=== PATIENT | female | born 1980 | race Caucasian/White ===

== ENCOUNTER 2016-04-02 08:40 | Emergency (ER) | payer BC ==
[2016-04-02 08:54] VITALS: BP 157/87; PULSE 89; RESP 16; TEMP 99.3
--- NOTE | 2016-04-02 09:26 | ED ---
General Adult HPI - General Chief complaint: Extremity Injury, Upper Stated complaint: arm pain Time Seen by Provider: 04/02/16 08:55 Source: patient, RN notes reviewed Mode of arrival: ambulatory Limitations: no limitations - History of Present Illness Initial comments: This is a 35-year-old female who presents to the emergency department with some tenderness to her lateral right pectoralis muscle. Patient states she woke up at 2:00 in morning and it was really hurting bad but as time went on a Better but still is sore when she grabs that portion of her pectoralis muscle. Patient states moving the arm away from the body makes it hurt worse if she rests the arm close to the body the pain almost goes away completely. Patient states she also had a little bit of tingling in her fingers but no actual numbness. Patient denies any injury that she knows of but she does have a toddler that she is constantly picking up. Patient denies any fever or chills. Patient denies any lumps bumps or anything that would be similar to an abscess. Patient denies any redness or warmth or swelling of the arm or of that area. - Related Data Home Medications Medication Instructions Recorded Confirmed No Known Home Medications [No 04/02/16 04/02/16 Known Home Medications] Allergies Allergy/AdvReac Type Severity Reaction Status Date / Time No Known Allergies Allergy Verified 04/02/16 09:07 Review of Systems ROS Statement: Those systems with pertinent positive or pertinent negative responses have been documented in the HPI. ROS Other: All systems not noted in ROS Statement are negative. Past Medical History Past Medical History: No Reported History History of Any Multi-Drug Resistant Organisms: None Reported Past Surgical History: Section, Ear Surgery Past Psychological History: No Psychological Hx Reported Smoking Status: Never smoker Past Alcohol Use History: None Reported Past Drug Use History: None Reported General Exam - General Exam Comments Initial Comments: GENERAL Patient is well-developed and well-nourished. Patient is in mild distress. EYES Patient's pupils are equal and round. Extraocular motion is intact SKIN Unremarkable NEURO The patient is alert and oriented 3 PYSCH Patient has normal interpersonal interactions. MUSCULOSKELETAL The lateral right pectoris muscle is tender to palpation. Limitations: no limitations Course Vital Signs 04/02/16 08:50 Temperature 99.3 F Pulse Rate 89 Respiratory 16 Rate Blood Pressure 157/87 O2 Sat by Pulse 98 Oximetry Disposition Clinical Impression: Muscle strain of chest wall Disposition: HOME SELF-CARE Condition: Good Instructions: Muscle Strain (ED) Additional Instructions: Patient should take Motrin 600 mg by mouth every 6 hours Referrals: Dwayne Fair MD [Primary Care Provider] - 1-2 days Time of Disposition: 09:25
== END 2016-04-02 09:45 | disposition home or self-care (01) ==
LOC: EC 08:40
DX: S29.011A Strain of muscle and tendon of front wall of thorax, initial encounter (principal); X50.3XXA Overexertion from repetitive movements, initial encounter
CPT/HCPCS: 99283

== ENCOUNTER 2018-03-26 12:56 | Emergency (ER) | payer BC ==
[2018-03-26 13:18] VITALS: RESP 18
[2018-03-26] MEDS ORDERED: SODIUM CHLORIDE 0.9% 1,000 ML IV STA (13:26)
[2018-03-26] MEDS ORDERED: BENZONATATE 100 MG CAP PO STA (13:26)
--- NOTE | 2018-03-26 13:47 | ED ---
General Adult HPI - General Chief complaint: Upper Respiratory Infection Stated complaint: COUGH/CHEST CONGESTION Time Seen by Provider: 03/26/18 13:20 Source: patient, RN notes reviewed, old records reviewed Mode of arrival: ambulatory Limitations: no limitations - History of Present Illness Initial comments: 37 old female patient past medical history of tubal ligation presents to ED with 1 month of dry, nonproductive cough. Patient additionally complains of one week of maxillary sinus congestion and drainage. Patient states that she was seen at urgent care approximately 3 weeks ago and prescribed steroids and amoxicillin which she states did not improve symptoms. Patient states that she has some baseline burning substernally with coughing. Patient states that this pain does not radiate, and is not associated with exertion. Patient states that she has some shortness of breath and chest pain with coughing. Patient states that she has had waxing and waning fevers. Patient denies any abdominal pain. Patient denies any other complaints. Systemic: Pt denies fatigue, myalgia, rash. Pt denies weakness, night sweats, weight loss. Neuro: Pt denies headache, visual disturbances, syncope or pre-syncope. HEENT: Pt denies ocular discharge or irritation, otalgia, rhinorrhea, pharyngitis or notable lymphadenopathy. Cardiopulmonary: Pt denies chest pain, SOB, heart palpitations, dyspnea on exertion. Abdominal/GI: Pt denies abdominal pain, n/v/d. : Pt denies dysuria, burning w/ urination, frequency/urgency. Denies new onset urinary or bowel incontinence. MSK: Pt denies myalgia, loss of strength or function in extremities. Neuro: Pt denies new onset weakness, paresthesias. - Related Data Previous Rx's Medication Instructions Recorded Albuterol Inhaler [Ventolin Hfa 1 - 2 puff INHALATION RT-Q6H PRN 03/26/18 Inhaler] #1 inhaler Albuterol Nebulized [Ventolin 2.5 mg INHALATION Q6H #1 nebu 03/26/18 Nebulized] Benzonatate [Tessalon Perles] 100 mg PO TID PRN #20 capsule 03/26/18 predniSONE 50 mg PO DAILY #5 tab 03/26/18 Allergies Allergy/AdvReac Type Severity Reaction Status Date / Time No Known Allergies Allergy Verified 03/26/18 13:18 Review of Systems ROS Statement: Those systems with pertinent positive or pertinent negative responses have been documented in the HPI. ROS Other: All systems not noted in ROS Statement are negative. Past Medical History Past Medical History: No Reported History History of Any Multi-Drug Resistant Organisms: None Reported Past Surgical History: Section, Ear Surgery Past Psychological History: No Psychological Hx Reported Smoking Status: Never smoker Past Alcohol Use History: None Reported Past Drug Use History: None Reported General Exam - General Exam Comments Initial Comments: Constitutional: NAD, AOX3, Pt has pleasant affect. HEENT: NC/AT, trachea midline, neck supple, no lymphadenopathy. Posterior pharynx non erythematous, without exudates. External ears appear normal, without discharge. Mucous membranes moist. Eyes PERRLA, EOM intact. There is no scleral icterus. No pallor noted. Cardiopulmonary: RRR, no murmurs, rubs or gallops, no JVD noted. Lungs CTAB in anterior and posterior gardner. No peripheral edema. Abdominal exam: Abdomen soft and non-distended. Abdomen non-tender to palpation in all 4 quadrants. Bowel sounds active in LLQ. No hepatosplenomegaly. No ecchymosis Neuro: CN II-XII grossly intact. No nuchal rigidity. MSK: No posterior calf tenderness bilaterally, homans sign negative bilaterally. Posterior tibialis and radial pulse +2 bilaterally. Sensation intact in upper and lower extremities. Full active ROM in upper and lower extremities, 5/5 stregnth. Limitations: no limitations Course Vital Signs 03/26/18 03/26/18 13:15 15:54 Temperature 98.8 F 97.7 F Pulse Rate 104 H 95 Respiratory 18 18 Rate Blood Pressure 139/95 148/90 O2 Sat by Pulse 97 98 Oximetry Medical Decision Making - Medical Decision Making 37 old female patient past medical history of tubal ligation presents to ED with 1 month of dry, nonproductive cough. Patient additionally complains of one week of maxillary sinus congestion and drainage. and has some baseline burning substernally with coughing. Patient states that this pain does not radiate, and is not associated with exertion. Patient states that she has some shortness of breath and chest pain with coughing. Patient states that she has had waxing and waning fevers. Patient denies any abdominal pain. Patient denies any other complaints. Patient vital signs initially displayed mild tachycardia 104 bpm, otherwise stable. Physical exam did not display acute pathology. CBC, CMP noncompressive. Troponin negative. D-dimer mildly elevated. Chest x-ray displayed no acute cardiopulmonary process. CT chest angiography ruled out pulmonary embolism.And displayed findings consistent with bronchitis. EKG was not concerning for acute ischemia. Pt to be discharged with treatment for bronchitis. Patient prescribed prednisone for 5 days, Tessalon Perles, albuterol rescue inhaler, albuterol nebulizer solution. Patient does have nebulizers at home. Patient to follow with primary care provider in 1-2 days. Patient to return to ED presents to the develop or condition worsens anyway. Case discussed in depth with Dr. Cardona. - Lab Data Result diagrams: 03/26/18 13:40 03/26/18 13:40 Lab Results 03/26/18 03/26/18 03/26/18 Range/Units 13:40 13:40 13:40 WBC 7.4 (3.8-10.6) k/uL RBC 5.21 (3.80-5.40) m/uL Hgb 12.1 (11.4-16.0) gm/dL Hct 38.1 (34.0-46.0) % MCV 73.1 L (80.0-100.0) fL MCH 23.1 L (25.0-35.0) pg MCHC 31.7 (31.0-37.0) g/dL RDW 15.9 H (11.5-15.5) % Plt Count 280 (150-450) k/uL Neutrophils % 68 % Lymphocytes % 21 % Monocytes % 5 % Eosinophils % 4 % Basophils % 1 % Neutrophils # 5.1 (1.3-7.7) k/uL Lymphocytes # 1.5 (1.0-4.8) k/uL Monocytes # 0.4 (0-1.0) k/uL Eosinophils # 0.3 (0-0.7) k/uL Basophils # 0.0 (0-0.2) k/uL Hypochromasia Slight Microcytosis Moderate D-Dimer 0.64 H (<0.60) mg/L FEU Sodium 142 (137-145) mmol/L Potassium 3.8 (3.5-5.1) mmol/L Chloride 108 H (98-107) mmol/L Carbon Dioxide 24 (22-30) mmol/L Anion Gap 10 mmol/L BUN 8 (7-17) mg/dL Creatinine 0.74 (0.52-1.04) mg/dL Est GFR (CKD-EPI)AfAm >90 (>60 ml/min/1.73 sqM) Est GFR (CKD-EPI)NonAf >90 (>60 ml/min/1.73 sqM) Glucose 108 H (74-99) mg/dL Calcium 9.3 (8.4-10.2) mg/dL Total Bilirubin 0.5 (0.2-1.3) mg/dL AST 57 H (14-36) U/L ALT 78 H (9-52) U/L Alkaline Phosphatase 94 (38-126) U/L Troponin I (0.000-0.034) ng/mL Total Protein 7.8 (6.3-8.2) g/dL Albumin 4.5 (3.5-5.0) g/dL 03/26/18 Range/Units 13:40 WBC (3.8-10.6) k/uL RBC (3.80-5.40) m/uL Hgb (11.4-16.0) gm/dL Hct (34.0-46.0) % MCV (80.0-100.0) fL MCH (25.0-35.0) pg MCHC (31.0-37.0) g/dL RDW (11.5-15.5) % Plt Count (150-450) k/uL Neutrophils % % Lymphocytes % % Monocytes % % Eosinophils % % Basophils % % Neutrophils # (1.3-7.7) k/uL Lymphocytes # (1.0-4.8) k/uL Monocytes # (0-1.0) k/uL Eosinophils # (0-0.7) k/uL Basophils # (0-0.2) k/uL Hypochromasia Microcytosis D-Dimer (<0.60) mg/L FEU Sodium (137-145) mmol/L Potassium (3.5-5.1) mmol/L Chloride (98-107) mmol/L Carbon Dioxide (22-30) mmol/L Anion Gap mmol/L BUN (7-17) mg/dL Creatinine (0.52-1.04) mg/dL Est GFR (CKD-EPI)AfAm (>60 ml/min/1.73 sqM) Est GFR (CKD-EPI)NonAf (>60 ml/min/1.73 sqM) Glucose (74-99) mg/dL Calcium (8.4-10.2) mg/dL Total Bilirubin (0.2-1.3) mg/dL AST (14-36) U/L ALT (9-52) U/L Alkaline Phosphatase (38-126) U/L Troponin I <0.012 (0.000-0.034) ng/mL Total Protein (6.3-8.2) g/dL Albumin (3.5-5.0) g/dL - EKG Data -: EKG Interpreted by Me (and dr cardona ) EKG Comments: Ventricular rate 90,. And for 114, QRS 86, QT/QTC 348/4.5. Normal sinus rhythm with sinus arrhythmia. ST abnormality, possible digitalis effect. Disposition Clinical Impression: Bronchitis Disposition: HOME SELF-CARE Condition: Stable Instructions (If sedation given, give patient instructions): Acute Bronchitis ( ED) Additional Instructions: Patient to adhere to previously discussed treatment plan and will take medication(s) as directed. Patient to follow up with PCP in 1-2 days. Patient to return to ED if symptoms do not improve. Prescriptions: Albuterol Inhaler [Ventolin Hfa Inhaler] 1 - 2 puff INHALATION RT-Q6H PRN #1 inhaler PRN Reason: as needed Albuterol Nebulized [Ventolin Nebulized] 2.5 mg INHALATION Q6H #1 nebu Benzonatate [Tessalon Perles] 100 mg PO TID PRN #20 capsule PRN Reason: Cough predniSONE 50 mg PO DAILY #5 tab Is patient prescribed a controlled substance at d/c from ED?: No Referrals: Dwayne Fair MD [Primary Care Provider] - 1-2 days
[2018-03-26 13:53] LABS: Basophils % (A) 1 %; Eosinophils # (A) 0.3 k/uL (0-0.7); Eosinophils % (A) 4 %; HCT 38.1 % (34.0-46.0); HGB 12.1 gm/dL (11.4-16.0); Hypochromasia Slight; Lymphocytes # (A) 1.5 k/uL (1.0-4.8); Lymphocytes % (A) 21 %; MCH 23.1 pg (25.0-35.0); MCHC 31.7 g/dL (31.0-37.0); MCV 73.1 fL (80.0-100.0); Mean Platelet Volume 6.6; Microcytosis Moderate; Monocytes # (A) 0.4 k/uL (0-1.0); Monocytes % (A) 5 %; Neutrophils # (A) 5.1 k/uL (1.3-7.7); Neutrophils % (A) 68 %; Platelet Count 280 k/uL (150-450); RBC 5.21 m/uL (3.80-5.40); RDW 15.9 % (11.5-15.5); WBC 7.4 k/uL (3.8-10.6)
[2018-03-26 14:07] LABS: ALT 78 U/L (9-52); AST 57 U/L (14-36); Albumin 4.5 g/dL (3.5-5.0); Alkaline Phosphatase 94 U/L (38-126); Anion Gap 10 mmol/L; Blood Urea Nitrogen 8 mg/dL (7-17); Calcium 9.3 mg/dL (8.4-10.2); Carbon Dioxide 24 mmol/L (22-30); Chloride 108 mmol/L (98-107); Glucose 108 mg/dL (74-99); Potassium 3.8 mmol/L (3.5-5.1); Sodium 142 mmol/L (137-145); Total Bilirubin 0.5 mg/dL (0.2-1.3); Total Protein 7.8 g/dL (6.3-8.2)
--- NOTE | 2018-03-26 14:11 | XR ---
EXAMINATION TYPE: XR chest 2V DATE OF EXAM: 03/26/2018 COMPARISON: NONE HISTORY: Cough and chest pain TECHNIQUE: Frontal and lateral views of the chest are obtained. FINDINGS: There is no focal air space opacity, pleural effusion, or pneumothorax seen. The cardiac silhouette size is within normal limits. The osseous structures are intact. IMPRESSION: No acute cardiopulmonary process.
--- NOTE | 2018-03-26 15:05 | CT ---
EXAMINATION TYPE: CT chest angio for PE DATE OF EXAM: 03/26/2018 COMPARISON: NONE HISTORY: Cough and chest congestion. CT DLP: 369.9 mGycm. Automated Exposure Control for Dose Reduction was Utilized. CONTRAST: CTA scan of the thorax is performed with IV Contrast, patient injected with 60ml mL of Isovue 370, pu lmonary embolism protocol. MIP Images are created on CT scanner and reviewed. FINDINGS: LUNGS: The lungs are grossly clear, there is no concerning parenchymal mass or nodule identified. T here are very few scattered subtle reticular nodular opacities throughout the lungs and diffuse mild peribronchial cuffing There is no pleural effusion or pneumothorax seen. The tracheobronchial tree i s patent. MEDIASTINUM: There is satisfactory enhancement of the pulmonary artery and its branches, there is no CT evidence for pulmonary embolism. There are mildly enlarged mediastinal lymph nodes measuring 1.1 cm in the right hilum and 9 mm in the prevascular space as well as 1.2 cm in the aorticopulmonary win simone. No cardiomegaly or pericardial effusion is seen. OTHER: Hepatic parenchyma is diffusely hypoattenuated in comparison to that of the spleen, most commo nly seen in hepatic steatosis. This finding limits evaluation for hepatic masses. No gross evidence o f hepatic mass is seen. No intrahepatic biliary ductal dilatation. Spleen is upper limits of normal s ize measuring 13.5 cm in longitudinal dimension IMPRESSION: 1. No evidence of pulmonary embolism. 2. Subtle scattered reticular nodular interstitial opacities and very mild diffuse peribronchial cuff ing suggest bronchitis. Mildly enlarged mediastinal adenopathy is likely reactive. 3. Hepatic steatosis and prominent size of the spleen approaching criteria for splenomegaly.
[2018-03-26 15:56] VITALS: BP 148/90; PULSE 95; TEMP 97.7
== END 2018-03-26 16:26 | disposition home or self-care (01) ==
LOC: EC 12:56
DX: J40 Bronchitis, not specified as acute or chronic (principal); R79.1 Abnormal coagulation profile
CPT/HCPCS: 36415; 93005; 85379; 80053; 84484; 85025; 71046; 71275; 99284; 96360; Q9967

== ENCOUNTER 2018-04-01 17:56 | Emergency (ER) | payer BC ==
[2018-04-01 18:15] VITALS: TEMP 98
--- NOTE | 2018-04-01 19:05 | ED ---
General Adult HPI - General Chief complaint: Headache Stated complaint: headache, double vision Source: patient, RN notes reviewed Mode of arrival: ambulatory Limitations: no limitations - History of Present Illness Initial comments: Patient is a 37-year-old female with history of migraine who presents the emergency department with her mother with complaint of headache for 3 days. She reports that she recently had bronchitis and other upper respiratory symptoms including runny nose and nasal congestion. She states that she recently finished the Z-Pack. She states that the pain is primarily frontal. She took 400 mg of ibuprofen at noon. She also complains of slight blurred vision (no double vision). She reports some nausea earlier, but none now. Patient denies any recent fever, chills, shortness of breath, chest pain, back pain, abdominal pain, vomiting, numbness or tingling, or any other complaints. - Related Data Previous Rx's Medication Instructions Recorded Albuterol Inhaler [Ventolin Hfa 1 - 2 puff INHALATION RT-Q6H PRN 03/26/18 Inhaler] #1 inhaler Albuterol Nebulized [Ventolin 2.5 mg INHALATION Q6H #1 nebu 03/26/18 Nebulized] Benzonatate [Tessalon Perles] 100 mg PO TID PRN #20 capsule 03/26/18 predniSONE 50 mg PO DAILY #5 tab 03/26/18 Amoxicillin/Potassium Clav 1 tab PO Q12HR 14 Days 04/01/18 [Augmentin 875-125 Tablet] Allergies Allergy/AdvReac Type Severity Reaction Status Date / Time No Known Allergies Allergy Verified 04/01/18 18:15 Review of Systems ROS Statement: Those systems with pertinent positive or pertinent negative responses have been documented in the HPI. ROS Other: All systems not noted in ROS Statement are negative. Past Medical History Past Medical History: No Reported History Additional Past Medical History / Comment(s): Unkown heart issues. History of Any Multi-Drug Resistant Organisms: None Reported Past Surgical History: Section, Ear Surgery Past Psychological History: No Psychological Hx Reported Smoking Status: Never smoker Past Alcohol Use History: None Reported Past Drug Use History: None Reported General Exam Limitations: no limitations General appearance: alert, in no apparent distress Head exam: Present: atraumatic, normocephalic, other (Tenderness over the frontal and maxillary sinuses.) Eye exam: Present: normal appearance, PERRL, EOMI ENT exam: Present: normal oropharynx, other (Left TM bulging. Right TM normal.) Neck exam: Present: full ROM. Absent: tenderness Respiratory exam: Present: normal lung sounds bilaterally. Absent: wheezes, rales, rhonchi Cardiovascular Exam: Present: regular rate, normal rhythm Neurological exam: Present: alert, oriented X3, CN II-XII intact, normal gait Course Vital Signs 04/01/18 04/01/18 18:12 20:47 Temperature 98 F Pulse Rate 107 H 74 Respiratory 20 18 Rate Blood Pressure 132/95 141/80 O2 Sat by Pulse 99 96 Oximetry Medical Decision Making - Medical Decision Making Visual acuity 20/20 both, 20/20 left, 20/25 right (per nurse). CT of the brain reveals pansinusitis, but is otherwise negative. Patient given Toradol 30 mg IM. Will prescribe Augmentin. Patient instructed to take a decongestant (ask for it behind the pharmacy counter). Case discussed in detail with attending physician Dr. Cardona. Disposition Clinical Impression: Sinusitis, Otitis media Disposition: HOME SELF-CARE Condition: Good Instructions (If sedation given, give patient instructions): Sinusitis (ED), Ear Infection (ED) Additional Instructions: Follow-up with your PCP in 1-2 days. Please take antibiotic as prescribed. Take decongestant as needed (ask for it behind the counter at the pharmacy). Return to the emergency department if your symptoms worsen or other concerns. Prescriptions: Amoxicillin/Potassium Clav [Augmentin 875-125 Tablet] 1 tab PO Q12HR 14 Days Is patient prescribed a controlled substance at d/c from ED?: No Referrals: Dwayne Fair MD [Primary Care Provider] - 1-2 days
--- NOTE | 2018-04-01 19:56 | CT ---
EXAMINATION TYPE: CT brain wo con DATE OF EXAM: 04/01/2018 COMPARISON: None HISTORY: headache, double vision CT DLP: 1076.4 mGycm. Automated Exposure Control for Dose Reduction was Utilized. TECHNIQUE: CT scan of the head is performed without contrast. FINDINGS: There is mucosal thickening in the maxillary sinuses with fluid levels. There is mucosal th ickening in the frontal sphenoid ethmoid sinuses with multiple fluid levels. Ventricles have normal size. There is no mass effect nor midline shift. There is no sign of intracran ial hemorrhage. The calvarium is intact. IMPRESSION: Negative CT scan of the brain. Pansinusitis.
[2018-04-01] MEDS ORDERED: KETOROLAC 60 MG/2 ML VIAL IM STA (20:20)
[2018-04-01 20:48] VITALS: BP 141/80; PULSE 74; RESP 18
== END 2018-04-01 20:55 | disposition home or self-care (01) ==
LOC: EC 17:56
DX: H66.92 Otitis media, unspecified, left ear (principal); J32.4 Chronic pansinusitis; H53.8 Other visual disturbances
CPT/HCPCS: 70450; 99284; 96372; J1885

== ENCOUNTER 2019-09-21 06:26 | Day surgery (SDC) | payer BC, OTHER ==
[2019-09-14 14:19] VITALS: BMI 30.6
[~2019-09-21 06:26] MED LIST: DEXAMETHASONE SOD PHOSPHATE 10 MG/ML 1 ML VIAL IV ONE; HYDROmorphone 0.5 MG/0.5 ML SYRINGE IVP PRN; LACTATED RINGERS 1,000 ML IV SCH; LIDOCAINE 1% (10MG/ML) FOR IV START INTRADERMA PRN; ONDANSETRON 4 MG/2 ML VIAL IVP ONE; Pre Op ABX Message 1 EACH MISC MISCELLANE ONE; SCOPOLAMINE 1.5MG/72HR PATCH TRANSDERM ONE
[2019-09-21] MEDS ORDERED: ONDANSETRON 4 MG/2 ML VIAL ONE (06:49)
[2019-09-21] MEDS ORDERED: MIDAZOLAM 2 MG/2 ML VIAL ONE (07:25)
[2019-09-21] MEDS ORDERED: PROPOFOL 10 MG/ML 20 ML VIAL IV ONE (07:25)
[2019-09-21] MEDS ORDERED: KETOROLAC 30 MG/ML 1 ML VIAL ONE ×2 (07:25→08:47)
[2019-09-21] MEDS ORDERED: fentaNYL (PF) 50 MCG/ML 2 ML AMP ONE (07:25)
[2019-09-21] MEDS ORDERED: LIDOCAINE 1% INJ 10MG/ML (20 ML MDV) ONE (07:25)
--- NOTE | 2019-09-21 08:09 | P.OP ---
Date of Procedure: 09/21/19 Preoperative Diagnosis: Menorrhagia Postoperative Diagnosis: Same Procedure(s) Performed: #1: Hysteroscopy. #2: Dilation and curettage. #3: NovaSure endometrial ablation Anesthesia: other (LMA) Surgeon: Luke Alas Estimated Blood Loss (ml): 10 Urine output (ml): 25 Pathology: other (Uterine curettings) Condition: stable Disposition: PACU Indications for Procedure: Please see dictated H&P for intimate details of this patient's admission. Brief summary this pleasant 38-year-old multiparous patient who's had persistent menorrhagia and ultrasound showing possible endometrial polyp. Patient presents for hysteroscopy D&C and also requesting NovaSure endometrial ablation. Patient understands this surgery and risks and risks of infection, bleeding, possible uterine perforation, and/or thermal injury. All the patient's questions are answered and a written consent is obtained. Operative Findings: This patient normal. Endometrial cavity with perhaps a small polyp but no large polyp was noted. Description of Procedure: This patient is taken the operating room she is laid in the supine position. She subsequently undergoes general anesthesia without incident. With an adequate level of anesthesia was placed in dorsal lithotomy position. She has a vaginal perineal prep and drape. Examination under anesthesia shows a mid position uterus. I first drain the bladder for 25 mL of clear urine. Weighted speculum placed posteriorly and the anterior lip of the cervix was grabbed with an Allis clamp. The cervix is then gently dilated. It is sounded to 8.5 cm. Hysteroscope was then introduced into the uterine cavity and using saline solution hysteroscopy is performed. I do not see any evidence of any large polyp however there is multiple small polyps that appear benign. Endometrial cavity length was measured at 6 cm. With this done the hysteroscope was removed. Cervix is dilated more to allow the polyp forceps into the uterine cavity. I then use a suction curette and gently but thoroughly do 4 quadrant curettage. This tissue sent off to pathology. This done the NovaSure device is then opened appears to be intact. It is set at a length of 6.0 cm and seated into the uterine cavity was a width of 4.6 cm. It passes the cavity integrity test and then is enabled at [address] setting for 1 minute 19 seconds. This done the NovaSure device is then removed again appears to be intact. Hysteroscopy is performed again and the uterine cavity appears to be ablated up to the endocervix. Excellent results are noted. This completed the procedure is ended. The Allis clamp and weighted speculum were removed. All counts are correct 3. There are no complications. Patient is awakened from anesthesia and taken to the recovery room in satisfactory condition.
[2019-09-21 08:12] VITALS: TEMP 97.2
[2019-09-21] MEDS ORDERED: KETOROLAC 30 MG/ML 1 ML VIAL IVP ONE (08:49)
[2019-09-21 09:06] VITALS: RESP 16
[2019-09-21 10:03] VITALS: BP 104/60; PULSE 70
== END 2019-09-21 10:20 | disposition home or self-care (01) ==
LOC: OR 06:26
PROVIDERS: ATTEND Obstetrics & Gynecology
DX: N92.0 Excessive and frequent menstruation with regular cycle (principal); N84.0 Polyp of corpus uteri; I10 Essential (primary) hypertension; G43.909 Migraine, unspecified, not intractable, without status migrainosus; Z79.899 Other long term (current) drug therapy; Z98.51 Tubal ligation status; Z98.890 Other specified postprocedural states
CPT/HCPCS: 81025; 88305; 58563; J2250; J1100; J2405; J2001; J3010; J1885; J2704

== ENCOUNTER → 2019-09-28 | Outpatient (CLI) | payer BC, OTHER ==
--- NOTE | 2019-09-20 13:01 | P.HPOB ---
History of Present Illness H&P Date: 09/20/19 Chief Complaint: Menrrhagia This patient is a pleasant 38 yr female who presented for a yearly examination and complaints of menorrhagia. Evaluation demonstrated was appears to be a 1.3 cm endometrial polyp. I discussed doing a D&C for removal and she has requested an endometrial ablation at the same time. Review of Systems Menstruation: Reports period heavy Past Medical History Past Medical History: Hypertension Additional Past Medical History / Comment(s): Unkown heart issues. History of Any Multi-Drug Resistant Organisms: None Reported Past Surgical History: Section, Ear Surgery, Tubal Ligation Past Anesthesia/Blood Transfusion Reactions: No Reported Reaction Past Psychological History: No Psychological Hx Reported Smoking Status: Former smoker Past Alcohol Use History: None Reported Past Drug Use History: None Reported Medications and Allergies Home Medications Medication Instructions Recorded Confirmed Type Hydrochlorothiazide 12.5 mg PO QAM 09/14/19 09/14/19 History [hydroCHLOROthiazide] Losartan [Cozaar] 50 mg PO QAM 09/14/19 09/14/19 History Phentermine HCl [Adipex-P] 37.5 mg PO DAILY 09/14/19 09/14/19 History Topiramate [Topamax] 25 mg PO BID 09/14/19 09/14/19 History Allergies Allergy/AdvReac Type Severity Reaction Status Date / Time No Known Allergies Allergy Verified 09/14/19 14:05 Exam - OBG Physical Exam Abdomen: bowel sounds normal Vulva: both: normal Vagina: normal moisture, no discharge Cervix: no lesion, no discharge Uterus: normal size, normal contour Results Ultrasound on 08/21 demonstrated 1.3 cm endometrial polyp. Assessment and Plan Assessment: This is a pleasant 38 yr old female with menorrhagia and who appears to be an endometrial polyp. Plan is hysteroscopy, D&C, and Novasure endometrial ablation. Amy and I have discussed this surgery and risks: infection, bleeding, possible uterine perforation and/or thermal injury. All of the patients questions have been answered and a written consent obtained (1) Menorrhagia Status: Acute Code(s): N92.0 - EXCESSIVE AND FREQUENT MENSTRUATION WITH REGULAR CYCLE SNOMED Code(s): 866968322 (2) Endometrial polyp Status: Acute Code(s): N84.0 - POLYP OF CORPUS UTERI SNOMED Code(s): 11382291
--- NOTE | 2019-09-28 12:06 | MM ---
Reason for exam: screening (asymptomatic). Baseline mammogram. History: Family history of breast cancer in maternal grandmother at age 40, breast cancer in paternal grandmother at age 40, breast cancer in paternal aunt at age 30, breast cancer in maternal aunt at age 54, breast cancer in maternal aunt at age 40, and breast cancer in maternal aunt at age 50. Took hormonal contraceptives for 10 years beginning at age 16. Physical Findings: Nurse did not find any significant physical abnormalities on exam. MG 3D Screening Mammo W/Cad Bilateral CC and MLO view(s) were taken. The breast tissue is heterogeneously dense. This may lower the sensitivity of mammography. No significant finding. These results were verbally communicated with the patient and result sheet given to the patient on 09/28/19. ASSESSMENT: Benign, BI-RAD 2 RECOMMENDATION: Routine screening mammogram of both breasts in 1 year.
== END | disposition home or self-care (01) ==
LOC: RADMAMWWP 10:00
PROVIDERS: ATTEND Family Medicine
DX: Z12.31 Encounter for screening mammogram for malignant neoplasm of breast (principal)
CPT/HCPCS: 77063; 77067

== ENCOUNTER → 2020-02-27 | Outpatient (CLI) | payer BC, OTHER ==
[2020-02-27 15:31] LABS: Basophils % (A) 1 %; Eosinophils # (A) 0.2 k/uL (0-0.7); Eosinophils % (A) 3 %; HCT 41.1 % (34.0-46.0); Lymphocytes # (A) 1.6 k/uL (1.0-4.8); Lymphocytes % (A) 26 %; MCH 30.9 pg (25.0-35.0); MCV 90.9 fL (80.0-100.0); Mean Platelet Volume 7.9; Monocytes # (A) 0.3 k/uL (0-1.0); Monocytes % (A) 5 %; Neutrophils # (A) 4.1 k/uL (1.3-7.7); Neutrophils % (A) 64 %; Platelet Count 193 k/uL (150-450); RBC 4.52 m/uL (3.80-5.40); RDW 12.6 % (11.5-15.5); WBC 6.4 k/uL (3.8-10.6)
[2020-02-27 15:36] LABS: African American GFR (CKD) >90 (>60 ml/min/1.73 sqM); Anion Gap 7 mmol/L; Blood Urea Nitrogen 12 mg/dL (7-17); Calcium 9.4 mg/dL (8.4-10.2); Carbon Dioxide 29 mmol/L (22-30); Chloride 105 mmol/L (98-107); Glucose 99 mg/dL (74-99); Non-African American GFR(CKD) 84 (>60 ml/min/1.73 sqM); Potassium 3.1 mmol/L (3.5-5.1); Sodium 141 mmol/L (137-145)
== END | disposition home or self-care (01) ==
LOC: LABPAT 14:58
PROVIDERS: ATTEND Obstetrics & Gynecology
DX: Z01.818 Encounter for other preprocedural examination (principal)
CPT/HCPCS: 36415; 80048; 85025

== ENCOUNTER 2020-03-07 06:01 | Inpatient (IN) | payer BC, OTHER ==
[2020-02-29 08:42] VITALS: BMI 28.5
--- NOTE | 2020-03-06 12:44 | P.HPOB ---
History of Present Illness H&P Date: 03/06/20 Chief Complaint: Menorrhagia, dysmenorrhea with failed ablation This patient is a pleasant 39 yr female who had an endometrial ablation in September for menorrhagia and iron deficient anemia. Patient returned stating that the ablation unfortunately was ineffective and continues to have menorrhagia and dysmenorrhea and desires definitive surgical treatment. Due to 3 previous C/S, plan is abdominal hysterectomy. Review of Systems Eyes: left bulging eye Genitourinary: Reports as per HPI, Reports abnormal vaginal bleeding, Reports dysmenorrhea, Reports menorrhagia Past Medical History Past Medical History: Asthma, Hypertension Additional Past Medical History / Comment(s): wore heart monitor in spring for possible murmur, no issues found, migraines History of Any Multi-Drug Resistant Organisms: None Reported Past Surgical History: Section, Ear Surgery, Tubal Ligation, Uterine Ablation Additional Past Surgical History / Comment(s): Section X3., D & C Past Anesthesia/Blood Transfusion Reactions: No Reported Reaction Additional Past Anesthesia/Blood Transfusion Reaction / Comment(s): "[place] last entirely". Mom and brother slow to wake up. Past Psychological History: No Psychological Hx Reported Smoking Status: Former smoker Past Alcohol Use History: None Reported Past Drug Use History: None Reported - Past Family History Brother(s) Family Medical History: Cancer Additional Family Medical History / Comment(s): Tongue cancer, throat cancer, non hodgkins lymphoma. Medications and Allergies Home Medications Medication Instructions Recorded Confirmed Type Hydrochlorothiazide 12.5 mg PO QAM 09/14/19 02/28/20 History [hydroCHLOROthiazide] Losartan [Cozaar] 50 mg PO QAM 09/14/19 02/28/20 History Phentermine HCl [Adipex-P] 37.5 mg PO DAILY 09/14/19 02/28/20 History Topiramate [Topamax] 25 mg PO BID 09/14/19 02/28/20 History Albuterol Sulfate [Proair Hfa] 1 - 2 puff INHALATION Q6HR PRN 02/29/20 02/29/20 History Beclomethasone Dipropionate [Qvar 1 puff INHALATION BID 02/29/20 02/29/20 History 40 mcg Redihaler] Allergies Allergy/AdvReac Type Severity Reaction Status Date / Time No Known Allergies Allergy Verified 02/28/20 15:33 Exam - OBG Physical Exam Abdomen: bowel sounds normal, no diffuse tenderness, no bruit present, no guarding noted, no hepatomegaly, no splenomegaly, no mass Vulva: both: normal Vagina: normal moisture, no discharge Cervix: no lesion, no discharge Uterus: normal size Results Previous ultrasound and endometrial sampling was negative. Assessment and Plan Assessment: This is a pleasant 39 yr female with long standing menorrhagia, dysmenorrhea, s/p ablation who requests definitive surgical treatment. Due to p revious C/S, plan is total abdominal hysterectomy, bilateral salpingectomy, with ovarian conservation (unless necessary). Amy and I have discussed this surgery in detail, including risks: infection, bleeding, possible injury to bowel/bladder/ureters requiring more surgery and/or prolonged catheterization. She understands she is at increased risk of urinary injury due to 3 previous C/S. We also discussed the risk of DVT/PE. All of her questions were answered and a written consent obtained. 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
[2020-03-07] MEDS ORDERED: ONDANSETRON 4 MG/2 ML VIAL IVP ONE (06:10)
[2020-03-07] MEDS ORDERED: DEXAMETHASONE SOD PHOSPHATE 4 MG/ML 1 ML VIAL IV ONE (06:10)
[2020-03-07] MEDS ORDERED: LACTATED RINGERS 1,000 ML IV SCH (06:10)
[2020-03-07] MEDS ORDERED: LIDOCAINE 1% (10MG/ML) FOR IV START INTRADERMA PRN (06:10)
[2020-03-07] MEDS ORDERED: MIDAZOLAM 2 MG/2 ML VIAL IVP ONE (07:00)
[2020-03-07] MEDS ORDERED: HYDROmorphone 0.5 MG/0.5 ML SYRINGE IVP PRN (07:00)
[2020-03-07] MEDS ORDERED: SCOPOLAMINE 1.5MG/72HR PATCH TRANSDERM ONE (07:00)
[2020-03-07] MEDS ORDERED: GLYCOPYRROLATE 0.2 MG/ML 2 ML VIAL ONE (07:19)
[2020-03-07] MEDS ORDERED: ROCURONIUM 10 MG/ML (10 ML VIAL) IV ONE (07:19)
[2020-03-07] MEDS ORDERED: SUCCINYLCHOLINE CHLORIDE 100 MG/5 ML SYR IV ONE (07:19)
[2020-03-07] MEDS ORDERED: PROPOFOL 10 MG/ML 20 ML VIAL IV ONE (07:19)
[2020-03-07] MEDS ORDERED: MORPHINE SULFATE (PF) 0.3 MG/0.3 ML SYR ONE (07:19)
[2020-03-07] MEDS ORDERED: PHENYLEPHRINE 10 MG/ML VIAL ONE (07:19)
[2020-03-07] MEDS ORDERED: fentaNYL (PF) 50 MCG/ML 2 ML AMP ONE (07:19)
[2020-03-07] MEDS ORDERED: LIDOCAINE 1% INJ 10MG/ML (20 ML MDV) ONE (07:19)
[2020-03-07] MEDS ORDERED: KETOROLAC 15 MG/ML 1 ML VIAL ONE (07:19)
[2020-03-07] MEDS ORDERED: MIDAZOLAM 2 MG/2 ML VIAL ONE (07:19)
[2020-03-07] MEDS ORDERED: NEOSTIGMINE 1 MG/ML 10 ML VIAL ONE (07:19)
[2020-03-07] MEDS ORDERED: LACTATED RINGERS 1,000 ML IV ONE (08:24)
[2020-03-07 08:40] VITALS: RESP 16
--- NOTE | 2020-03-07 08:46 | P.OP ---
Date of Procedure: 03/07/20 Preoperative Diagnosis: #1: Dysfunctional uterine bleeding/menorrhagia. #2: Dysmenorrhea. #3: Failed endometrial ablation Postoperative Diagnosis: Same Procedure(s) Performed: Total abdominal hysterectomy and bilateral salpingectomy Anesthesia: WENDI Surgeon: Luke Alas Automatic Chief #1: Reyna Castillo Estimated Blood Loss (ml): 20 Pathology: other (Uterus with attached cervix and bilateral fallopian tubes) Condition: stable Disposition: PACU Indications for Procedure: Please see dictated H&P for intimate details of this patient's admission. Brief summary this pleasant 39-year-old multiparous patient who's had long-standing dysfunctional bleeding and dysmenorrhea and failed endometrial ablation requesting definitive surgical therapy. Patient I discussed the surgery and risks and risks of infection, bleeding, possible injury to bowel, bladder, vessels, and/or other organs. Patient stands risk of DVT and pulmonary embolism. All the patient's questions are answered written consent is obtained. Operative Findings: This is a patient had a normal-appearing uterus and bilateral fallopian tubes and ovaries. Evidence of previous tubal ligation Description of Procedure: This patient is taken to the operating room where she is laid in the supine position. She subsequent undergoes general endotracheal anesthesia without incident. With an adequate level of anesthesia she has a vaginal perineal abdominal prep and drape. Scalpels and taken the previous Pfannenstiel incision is incised. A second scalpel is taken down the fascia the fascia scored with scalpel. Fascial incision extended bilaterally using Lau scissors. Fascia is dissected off the rectus muscles sharply. Peritoneum was identified and entered sharply. Peritoneal incision extended superior and inferior without difficulty. Inspection the pelvis this time shows a mobile uterus with normal tubes and ovaries. Bowel and upper abdomen grossly appears normal. Robe retractor is then placed. The bowels packed up out of the pelvis with a wet laparotomy sponge. Using 2 curved Cassie's a grabbed the cornea of the uterus. The right fallopian tube is grasped with a Tristanian and a Antonio clamp placed across the pedicle. This is transected and suture ligated with 0 Vicryl suture. Excellent hemostasis is noted. Similar technique is done on the left side with similar results. With this done 2 curved Heaneys are placed across the cornea of the uterus. Serial transection and suture ligation is done with 0 Vicryl suture in the usual fashion to the level of the bladder. Bladder peritoneum was then sharply dissected off the lower uterine segment without difficulty. Serial clamps of the uterosacral cardinal ligaments were then done with a Antonio clamps. At the apex of the vagina the uterus with attached cervix is then excised. The vaginal cuff was then closed in 0 Vicryl running locked fashion. Excellent hemostasis is noted. Copious irrigation is done at this time and small bleeders are cauterized. Excellent hemostasis is noted. This completed the pack is removed and the Robe retractors removed. All counts are correct 3. Peritoneum was identified and closed using 0 Vicryl running fashion. Rectus muscles were approximate 0 Vicryl interrupted fashion. Fascial incision closed using 0 PDS. Fascial incision is intact and hemostatic. Subcutaneous tissues and closed using a 3-0 Vicryl. Skin is and closed using gloria. Sterile dressing is then applied. All counts are correct 3. There are no complications. Patient is awakened from anesthesia and taken to the recovery room in satisfactory condition
[2020-03-07] MEDS ORDERED: IBUPROFEN 600 MG TAB PO PRN (09:31)
[2020-03-07] MEDS ORDERED: diphenhydrAMINE 50 MG/ML 1 ML VIAL IVP PRN (09:31)
[2020-03-07] MEDS ORDERED: SIMETHICONE 80 MG CHEWABLE PO PRN (09:31)
[2020-03-07] MEDS ORDERED: ONDANSETRON 4 MG/2 ML VIAL IVP PRN (09:31)
[2020-03-07] MEDS ORDERED: Acetaminophen-Codeine 300-30mg TAB PO PRN (09:31)
[2020-03-07 10:10] LABS: Basophils % (A) 0 %; Eosinophils % (A) 0 %; HCT 39.5 % (34.0-46.0); HGB 13.9 gm/dL (11.4-16.0); Lymphocytes # (A) 1.1 k/uL (1.0-4.8); Lymphocytes % (A) 8 %; MCH 32.1 pg (25.0-35.0); MCHC 35.2 g/dL (31.0-37.0); MCV 91.1 fL (80.0-100.0); Monocytes # (A) 0.2 k/uL (0-1.0); Monocytes % (A) 2 %; Neutrophils # (A) 11.8 k/uL (1.3-7.7); Neutrophils % (A) 89 %; Platelet Count 195 k/uL (150-450); RBC 4.34 m/uL (3.80-5.40); WBC 13.2 k/uL (3.8-10.6)
[2020-03-07] MEDS: KETOROLAC 15 MG/ML 1 ML VIAL IVP PRN ×2 (14:14→20:05)
[2020-03-07] MEDS: SENNOSIDES-DOCUSATE SODIUM 1 EACH TAB PO SCH ×2 (19:14→23:09)
[2020-03-07] MEDS: LACTATED RINGERS 1,000 ML IV SCH (19:15)
[2020-03-08] MEDS: LACTATED RINGERS 1,000 ML IV SCH ×3 (02:51→22:36)
[2020-03-08] MEDS: KETOROLAC 15 MG/ML 1 ML VIAL IVP PRN (05:28)
--- NOTE | 2020-03-08 06:36 | P.PN ---
Progress Note - Text Progress Note Date: 03/08/20 Postoperative day #1. Patient is resting without complaints. Vital signs are stable she's afebrile. Her incision is intact and dry. Patient is tolerating clear liquids. She is having excellent pain control. Plan today is to advance to regular diet, discontinue her catheter, encourage ambulation, allow the patient to shower, and check a CBC. If patient continues to well most likely will discharge home tomorrow.
[2020-03-08 07:14] LABS: Basophils % (A) 0 %; Eosinophils # (A) 0.1 k/uL (0-0.7); Eosinophils % (A) 1 %; HCT 35.3 % (34.0-46.0); HGB 12.3 gm/dL (11.4-16.0); Lymphocytes # (A) 1.5 k/uL (1.0-4.8); Lymphocytes % (A) 14 %; MCH 31.7 pg (25.0-35.0); MCHC 34.8 g/dL (31.0-37.0); MCV 91.1 fL (80.0-100.0); Monocytes # (A) 0.5 k/uL (0-1.0); Monocytes % (A) 5 %; Neutrophils # (A) 8.4 k/uL (1.3-7.7); Neutrophils % (A) 80 %; Platelet Count 163 k/uL (150-450); RBC 3.88 m/uL (3.80-5.40); RDW 12.9 % (11.5-15.5); WBC 10.6 k/uL (3.8-10.6)
--- NOTE | 2020-03-08 08:04 | P.PN ---
Progress Note - Text Progress Note Date: 03/08/20 (638) Anesthesia Postop day 1 Subjective: Status Post section with Duramorph. Patient seen and examined. Doing well without complaint. VAS 3 out of 10. No current nausea vomiting or pruritus, mild pruritus yesterday eveningtolerable, vomiting 1 yesterday now resolved. Afebrile. Gross lower extremity strength intact. Without apparent anesthetic complications. Objective: Vital signs reviewed Heart: Regular Rate Lungs: Good chest excursion Abdomen: Appears nondistended Assessment: Status post with Duramorph postop day 1 Plan: Continue current care with your medical management.
[2020-03-08] MEDS ORDERED: ACETAMINOPHEN TAB 325 MG TAB PO PRN (08:37)
[2020-03-08] MEDS: SENNOSIDES-DOCUSATE SODIUM 1 EACH TAB PO SCH ×2 (08:42→22:36)
[2020-03-08] MEDS: Acetaminophen-Codeine 300-30mg TAB PO PRN (15:13)
[2020-03-09] MEDS: Acetaminophen-Codeine 300-30mg TAB PO PRN (05:41)
[2020-03-09 08:12] VITALS: BP 128/78; PULSE 70; TEMP 97.7
[2020-03-09] MEDS: SENNOSIDES-DOCUSATE SODIUM 1 EACH TAB PO SCH (08:18)
--- NOTE | 2020-03-09 09:06 | P.DS ---
Providers Date of admission: 03/07/20 06:01 Expected date of discharge: 03/09/20 Attending physician: Luke Alas Primary care physician: Dwayne Fair MD - Discharge Diagnosis(es) (1) Status post abdominal hysterectomy and salpingo-oophorectomy Current Visit: Yes Status: Acute Hospital Course: Patient presented for NELIA/BSO for dysfunctional uterine bleeding. She noted this procedure with Dr. Alas without complication. Postoperatively she is ambulating voiding without difficulty, tolerating regular diet passing flatus. She will be discharged home postoperative day #2 in stable condition to follow- up with Dr. Alas in one week. Her incision is clean, dry, intact and gloria will be removed today. She denies nausea, vomiting, chest pain, shortness of breath or any calf pain. Plan - Discharge Summary Discharge Rx Participant: Yes New Discharge Prescriptions: New Ibuprofen [Motrin] 600 mg PO Q6HR PRN #30 tab PRN Reason: Mild Discomfort Acetaminophen-Codeine 300-30mg [Tylenol w/codeine #3] 1 each PO Q4HR PRN #18 tab PRN Reason: Moderate Pain No Action Phentermine HCl [Adipex-P] 37.5 mg PO DAILY Losartan [Cozaar] 50 mg PO QAM Topiramate [Topamax] 25 mg PO BID Hydrochlorothiazide [hydroCHLOROthiazide] 12.5 mg PO QAM Albuterol Sulfate [Proair Hfa] 1 - 2 puff INHALATION Q6HR PRN PRN Reason: Dyspnea Beclomethasone Dipropionate [Qvar 40 mcg Redihaler] 1 puff INHALATION BID Discharge Medication List Hydrochlorothiazide [hydroCHLOROthiazide] 12.5 mg PO QAM 09/14/19 [History] Losartan [Cozaar] 50 mg PO QAM 09/14/19 [History] Phentermine HCl [Adipex-P] 37.5 mg PO DAILY 09/14/19 [History] Topiramate [Topamax] 25 mg PO BID 09/14/19 [History] Albuterol Sulfate [Proair Hfa] 1 - 2 puff INHALATION Q6HR PRN 02/29/20 [History] Beclomethasone Dipropionate [Qvar 40 mcg Redihaler] 1 puff INHALATION BID 02/29/20 [History] Acetaminophen-Codeine 300-30mg [Tylenol w/codeine #3] 1 each PO Q4HR PRN #18 tab 03/08/20 [Rx] Ibuprofen [Motrin] 600 mg PO Q6HR PRN #30 tab 03/08/20 [Rx] Follow up Appointment(s)/Referral(s): Luke Alas MD [STAFF PHYSICIAN] - 1 Week Patient Instructions/Handouts: Hysterectomy (DC) Activity/Diet/Wound Care/Special Instructions: No strenuous lifting or heavy lifting for 6 weeks. No intercourse or anything per vagina for 6 weeks. Please call if any fever, chills, excessive vaginal bleeding, and/or abdominal pain. Discharge Disposition: HOME SELF-CARE
== END 2020-03-09 11:45 | disposition home or self-care (01) | DRG 743 ==
LOC: 2ORMAIN 06:01 → 4FBP 08:58
PROVIDERS: ADMIT Obstetrics & Gynecology; ATTEND Obstetrics & Gynecology
PROC: 0UT70ZZ Resection of Bilateral Fallopian Tubes, Open Approach (ICD-10-PCS; principal; 2020-03-07 07:30)
PROC: 0UT90ZZ Resection of Uterus, Open Approach (ICD-10-PCS; principal; 2020-03-07 07:30)
DX: N92.0 Excessive and frequent menstruation with regular cycle (principal); N94.6 Dysmenorrhea, unspecified; I10 Essential (primary) hypertension; J45.909 Unspecified asthma, uncomplicated; N99.85 Post endometrial ablation syndrome; N83.8 Other noninflammatory disorders of ovary, fallopian tube and broad ligament; Z79.899 Other long term (current) drug therapy; Z98.891 History of uterine scar from previous surgery; Z87.891 Personal history of nicotine dependence; Z98.51 Tubal ligation status; Z80.7 Family history of other malignant neoplasms of lymphoid, hematopoietic and related tissues; Z80.8 Family history of malignant neoplasm of other organs or systems
CPT/HCPCS: 81025; 84132; 85025; 86850; 86900; 86901; 88307

== ENCOUNTER 2021-08-13 16:46 | Emergency (ER) | payer BC, OTHER ==
[2021-08-13 17:27] LABS: Basophils # (A) 0.1 k/uL (0-0.2); Basophils % (A) 1 %; Eosinophils # (A) 0.2 k/uL (0-0.7); Eosinophils % (A) 2 %; HCT 40.5 % (34.0-46.0); HGB 13.5 gm/dL (11.4-16.0); Lymphocytes # (A) 1.6 k/uL (1.0-4.8); Lymphocytes % (A) 21 %; MCH 30.9 pg (25.0-35.0); MCHC 33.4 g/dL (31.0-37.0); MCV 92.3 fL (80.0-100.0); Mean Platelet Volume 8.1; Monocytes # (A) 0.4 k/uL (0-1.0); Monocytes % (A) 5 %; Neutrophils # (A) 5.4 k/uL (1.3-7.7); Neutrophils % (A) 70 %; Platelet Count 224 k/uL (150-450); RBC 4.39 m/uL (3.80-5.40); RDW 13.5 % (11.5-15.5); WBC 7.6 k/uL (3.8-10.6)
--- NOTE | 2021-08-13 17:35 | XR ---
EXAMINATION TYPE: XR chest 2V DATE OF EXAM: 08/13/2021 COMPARISON: 03/26/2018 INDICATION: Chest pain TECHNIQUE: Frontal and lateral views of the chest are obtained. FINDINGS: The heart size is normal. The pulmonary vasculature is normal. The lungs are clear. IMPRESSION: 1. No acute pulmonary process.
[2021-08-13 17:41] LABS: ALT 21 U/L (4-34); AST 20 U/L (14-36); African American GFR (CKD) >90 (>60 ml/min/1.73 sqM); Albumin 4.7 g/dL (3.5-5.0); Alkaline Phosphatase 71 U/L (38-126); Anion Gap 8 mmol/L; Blood Urea Nitrogen 9 mg/dL (7-17); Carbon Dioxide 26 mmol/L (22-30); Chloride 105 mmol/L (98-107); Glucose 103 mg/dL (74-99); INR 0.9 (<1.2); Magnesium 2.3 mg/dL (1.6-2.3); Non-African American GFR(CKD) 90 (>60 ml/min/1.73 sqM); Potassium 3.9 mmol/L (3.5-5.1); Sodium 139 mmol/L (137-145); Total Bilirubin 0.3 mg/dL (0.2-1.3); Total Protein 7.3 g/dL (6.3-8.2)
[2021-08-13 17:42] LABS: Partial Thromboplastin Time 24.3 sec (22.0-30.0); Prothrombin Time 9.6 sec (9.0-12.0)
--- NOTE | 2021-08-13 18:18 | ED ---
Chest Pain HPI - General Chief Complaint: Chest Pain Stated Complaint: chest pain Time Seen by Provider: 08/13/21 16:50 Source: patient, EMS Mode of arrival: EMS - History of Present Illness Initial Comments: Amy Ramos is a 40-year-old female with a history of hypertension who presents to the emergency department today via ambulance from her primary care office. Patient reports for approximately past 3 week she's been having episodes of chest pain. She describes them as sharp. They happen at rest and with activity. No exacerbating or relieving factors can be identified. When she saw her primary care provider today she told him of this pain, he obtained an EKG which revealed a new left bundle-branch block from previous EKG and he called an ambulance for her transport to the hospital. Patient has no personal cardiac history however does have a strong family history including multiple people with coronary artery disease before the age of 40. Her mother is in her 60s and recently underwent triple bypass. Patient is not on estrogen no history of DVT PE in the past. No family history. - Related Data Home Medications Medication Instructions Recorded Confirmed Phentermine HCl [Adipex-P] 37.5 mg PO DAILY 09/14/19 08/13/21 Topiramate [Topamax] 25 mg PO BID 09/14/19 08/13/21 hydroCHLOROthiazide 12.5 mg PO DAILY 09/14/19 08/13/21 Losartan Potassium [Cozaar] 100 mg PO DAILY 08/13/21 08/13/21 Allergies Allergy/AdvReac Type Severity Reaction Status Date / Time No Known Allergies Allergy Verified 08/13/21 18:09 Review of Systems ROS Statement: Those systems with pertinent positive or pertinent negative responses have been documented in the HPI. ROS Other: All systems not noted in ROS Statement are negative. EKG Findings - EKG Comments: EKG Findings:: EKG was obtained due to complaint of chest pain and abnormal outpatient EKG, EKG was obtained at 1656, rate is 92 rhythm is sinus with a leftward deviation left BBB, no acute ST elevations or depressions no evidence of ischemia or infarction. When compared to previous EKG from a number of years ago the left bundle-branch block is new. Past Medical History Past Medical History: Asthma, Hypertension Additional Past Medical History / Comment(s): wore heart monitor in spring for possible murmur, no issues found, migraines History of Any Multi-Drug Resistant Organisms: None Reported Past Surgical History: Section, Ear Surgery, Tubal Ligation, Uterine Ablation Additional Past Surgical History / Comment(s): Section X3., D & C Past Anesthesia/Blood Transfusion Reactions: No Reported Reaction Additional Past Anesthesia/Blood Transfusion Reaction / Comment(s): "[place] last entirely". Mom and brother slow to wake up. Past Psychological History: No Psychological Hx Reported Smoking Status: Former smoker Past Alcohol Use History: None Reported Past Drug Use History: None Reported - Past Family History Brother(s) Family Medical History: Cancer Additional Family Medical History / Comment(s): Tongue cancer, throat cancer, non hodgkins lymphoma. General Exam - General Exam Comments Initial Comments: Physical Exam GENERAL: Patient is well-developed and well-nourished. Patient is nontoxic and well- hydrated and is in no distress. HENT: Normocephalic, Atraumatic. EYES: PERRL, EOMI PULMONARY: Unlabored respirations. No audible rales rhonchi or wheezing was noted. CARDIOVASCULAR: There is a regular rate and rhythm without any murmurs gallops or rubs. ABDOMEN: Soft and nontender with normal bowel sounds. SKIN: Skin is clear with no lesions or rashes and otherwise unremarkable. : Deferred NEUROLOGIC: Patient is alert and oriented x3. Moving all extremities spontaneously MUSCULOSKELETAL: Normal extremities with adequate strength and full range of motion. No lower extremity swelling or edema. No calf tenderness. PSYCHIATRIC: Normal psychiatric evaluation. Course Vital Signs 08/13/21 08/13/21 16:49 18:26 Temperature 99.3 F 98.9 F Pulse Rate 97 98 Respiratory 18 18 Rate Blood Pressure 142/92 131/79 O2 Sat by Pulse 100 100 Oximetry Chest Pain MDM - MDM The patient was seen and evaluated, patient has had intermittent chest pain for 3 weeks, no active pain on evaluation EKG does show a new left bundle-branch block Labs were obtained and are unremarkable troponin is not elevated d-dimer is not elevated, patient care was discussed with cardiology powertrain control systems engineer Dr. Boone who recommends a repeat troponin if negative recommends discharge home with outpatient follow-up. Patient was agreeable to this plan. Repeat troponin was in fact negative at this time patient may chest pain-free and is comfortable with plan for discharge home and outpatient follow-up. Disposition Clinical Impression: Atypical chest pain, LBBB (left bundle branch block) Disposition: HOME SELF-CARE Condition: Stable Additional Instructions: Your labs today are unremarkable, follow up with cardiology out patient Is patient prescribed a controlled substance at d/c from ED?: No Referrals: Dwayne aFir MD [Primary Care Provider] - 1-2 days
[2021-08-13 18:28] VITALS: TEMP 98.9
[2021-08-13 22:07] VITALS: BP 130/83; PULSE 80; RESP 16
== END 2021-08-13 22:07 | disposition home or self-care (01) ==
LOC: EC 16:46
DX: R07.89 Other chest pain (principal); I44.7 Left bundle-branch block, unspecified; J45.909 Unspecified asthma, uncomplicated; I10 Essential (primary) hypertension; Z87.891 Personal history of nicotine dependence
CPT/HCPCS: 36415; 71046; 80053; 83735; 83880; 84484; 85025; 85379; 85610; 85730; 93005; 99285

== ENCOUNTER → 2021-09-05 | Outpatient (CLI) | payer BC, OTHER ==
[2021-09-05 15:01] LABS: ALT 42 U/L (8-44); AST 32 U/L (13-35); LDL Cholesterol,Calculated 107.9 mg/dL (0.0-131.0)
== END | disposition home or self-care (01) ==
LOC: LABWHC1 08:27
PROVIDERS: ATTEND Internal Medicine Interventional Cardiology
DX: E78.2 Mixed hyperlipidemia (principal)
CPT/HCPCS: 36415; 80061; 84450; 84460

== ENCOUNTER 2022-12-02 14:00 | Observation (INO) | payer BC, OTHER ==
--- NOTE | 2022-12-02 14:47 | ED ---
Chest Pain HPI - General Source: patient, RN notes reviewed Mode of arrival: ambulatory Limitations: no limitations <Rodriguez Montiel - Last Filed: 12/02/22 14:46> - General Source: patient, RN notes reviewed, old records reviewed <Jeffy Chapman - Last Filed: 12/02/22 22:30> - General Chief Complaint: Chest Pain Stated Complaint: chest pain on right side and shoulder/back Time Seen by Provider: 12/02/22 14:46 - History of Present Illness Initial Comments: 42-year-old female presents emergency Department chief complaint chest pain. Patient states that the pain is centralized and radiates up. Patient has a history of a left bundle-branch block states that she has high blood pressure. She does see Dr. Whitmore she had stress test last year. (Rodriguez Montiel) Patient is a 42-year-old female presents emergency Department complaint chest pain. Has a history of early cardiac disease in the family as her brother is actually scheduled to receive CABG soon. Describes pain as somewhat substernal with radiation towards the right shoulder. Denies any diaphoresis or nausea or vomiting with it. Denies any abdominal pain. States pain is been present throughout the day today and has been constant. Denies any headaches or other acute complaints. Does see a potato picker no history of cardiac stents are other problems other than hypertension. Presents for further evaluation at this time. No known palliative or provocative factors for the patient's chest pain. (Jeffy Chapman) - Related Data Home Medications Medication Instructions Recorded Confirmed Phentermine HCl [Adipex-P] 37.5 mg PO DAILY 09/14/19 08/13/21 Topiramate [Topamax] 25 mg PO BID 09/14/19 08/13/21 hydroCHLOROthiazide 12.5 mg PO DAILY 09/14/19 08/13/21 Losartan Potassium [Cozaar] 100 mg PO DAILY 08/13/21 08/13/21 Allergies Allergy/AdvReac Type Severity Reaction Status Date / Time No Known Allergies Allergy Verified 12/02/22 14:10 Review of Systems ROS Other: All systems not noted in ROS Statement are negative. <Rodriguez Montiel - Last Filed: 12/02/22 14:46> ROS Other: All systems not noted in ROS Statement are negative. <Jeffy Chapman - Last Filed: 12/02/22 22:30> ROS Statement: Those systems with pertinent positive or pertinent negative responses have been documented in the HPI. Review of Systems: CONST: Denies fever EYES: Denies blurry vision ENT: Denies nasal congestion C/V: Endorses chest pain RESP: Denies shortness of breath GI: Denies abdominal pain : Denies dysuria SKIN: Denies rash. MSK: Denies joint pain. NEURO: Denies headache (Jeffy Chapman) EKG Findings - EKG Comments: EKG Findings:: 12-lead Electrocardiogram Interpretation Note. EKG was reviewed and interpreted by myself. 12-lead ECG performed at 1431 is interpreted by me as revealing normal sinus rhythm at a rate of 71 beats per minute. Patient has what appears to be an incomplete right bundle-branch block as well as anterior fascicular block. Left axis deviation. MT interval is 132 ms, QRS ration is 105 ms, QTc is 412 ms.. There were no obvious acute ST or T wave abnormalities to suggest myocardial ischemia or injury. R wave progression across the precordium was delayed. 12-lead Electrocardiogram Interpretation Note. EKG was reviewed and interpreted by myself. 12-lead ECG performed at 2026 is interprete d by me as revealing normal sinus rhythm at a rate of 68 beats per minute. Left axis deviation. MT intervals 133 ms, QRS duration is 117 ms, QTc is 447 ms.. There were no obvious acute ST or T wave abnormalities to suggest myocardial ischemia or injury. R wave progression across the precordium was delayed. No dynamic changes when compared with EKG from earlier.. - EKG Results: EKG: interpreted by ERMD <Jeffy Chapman - Last Filed: 12/02/22 22:30> Past Medical History Past Medical History: Asthma, Hypertension Additional Past Medical History / Comment(s): wore heart monitor in spring for possible murmur, no issues found, migraines History of Any Multi-Drug Resistant Organisms: None Reported Past Surgical History: Section, Ear Surgery, Tubal Ligation, Uterine Ablation Additional Past Surgical History / Comment(s): Section X3., D & C Past Anesthesia/Blood Transfusion Reactions: No Reported Reaction Additional Past Anesthesia/Blood Transfusion Reaction / Comment(s): "[place] last entirely". Mom and brother slow to wake up. Past Psychological History: No Psychological Hx Reported Smoking Status: Former smoker Past Alcohol Use History: None Reported Past Drug Use History: None Reported - Past Family History Brother(s) Family Medical History: Cancer Additional Family Medical History / Comment(s): Tongue cancer, throat cancer, non hodgkins lymphoma. <Rodriguez Montiel - Last Filed: 12/02/22 14:46> General Exam Limitations: no limitations <Rodriguez Montiel - Last Filed: 12/02/22 14:46> <Jeffy Chapman - Last Filed: 12/02/22 22:30> - General Exam Comments Initial Comments: Visual Physical Exam Vital signs reviewed General: Well-appearing, nontoxic, no acute distress. Head: Normocephalic, atraumatic Eyes: PERRLA, EOMI ENT: Airway patent Chest: Nonlabored breathing Skin: No visual rash, normal skin tone Neuro: Alert and oriented 3 Musculoskeletal: No gross abnormalities (Rodriguez Montiel) General: Appears in no acute distress. HEAD: Normal with no signs of head trauma. EYES: PERRLA, EOMI, conjunctiva normal, no discharge. ENT: Hearing grossly intact, normal oropharynx. RESPIRATORY: Clear breath sounds bilaterally. No wheezes, rales, or rhonchi. C/V: Regular rate and rhythm. S1 and S2 auscultated, no edema, peripheral pulses 2+ and intact throughout ABD: Abd is soft, nontender, nondistended EXT: Normal range of motion, no obvious deformity SKIN: No rashes or lesions observed on exposed skin. NEURO: Alert and oriented x 4. Cranial nerves II-XII intact. No focal sensory or strength deficits. (Jeffy Chapman) Course Vital Signs 12/02/22 12/02/22 12/02/22 14:10 20:55 21:00 Temperature 97.9 F Pulse Rate 95 64 Respiratory 18 16 Rate Blood Pressure 160/86 119/90 O2 Sat by Pulse 99 99 99 Oximetry Chest Pain MDM <Rodriguez Montiel - Last Filed: 12/02/22 14:46> <Jeffy Chapman - Last Filed: 12/02/22 22:30> - MDM I performed the quick note portion of this chart signed Rodriguez Montiel PA-C (Rodriguez Montiel) Was pt. sent in by a medical professional or institution (, PA, HOUSESMITH, urgent care, hospital, or residential...) When possible be specific @ -No Did you speak to anyone other than the patient for history (EMS, parent, family, police, friend...)? What history was obtained from this source @ -No Did you review nursing and triage notes (agree or disagree)? Why? @ -I reviewed and agree with nursing and triage notes Were old charts reviewed (outside hosp., previous admission, EMS record, old EKG, old radiological studies, urgent care reports/EKG's, residential records)? Report findings @ -Old charts reviewed. Differential Diagnosis (chest pain, altered mental status, abdominal pain women, abdominal pain men, vaginal bleeding, weakness, fever, dyspnea, syncope, headache, dizziness, GI bleed, back pain, seizure, CVA, palpatations, mental health, musculoskeletal)? @ -Differential Chest Pain: Stable Angina, Unstable Angina, STEMI, NSTEMI Aortic Dissection, Pneumothorax, Musculoskeletal, Esophageal Spasm GERD, Cholecystitis, Pancreatitis, Zoster, this is not meant to be an all-inclusive list. EKG interpreted by me (3pts min.). @ -As above X-rays interpreted by me (1pt min.). @ -Chest x-ray reveals no obvious acute cardio pulmonary process. CT interpreted by me (1pt min.). @ -None done U/S interpreted by me (1pt. min.). @ -None done What testing was considered but not performed or refused? (CT, X-rays, U/S, labs)? Why? @ -None What meds were considered but not given or refused? Why? @ -None Did you discuss the management of the patient with other professionals (professionals i.e. , PA, HOUSESMITH, lab, RT, psych nurse, certified social workers in health care, trim die maker, teacher, ordnance officer, case management manager)? Give summary @ -Discussed with the admitting team, Dr. Skinner of [facility] PHYSICIAN GROUP WHO ADMITS THE PATIENT Was smoking cessation discussed for >3mins.? @ -No Was critical care preformed (if so, how long)? @ -No Were there social determinants of health that impacted care today? How? (Homelessness, low income, unemployed, alcoholism, drug addiction, transportation, low edu. Level, literacy, decrease access to med. care, detention, rehab)? @ -No Was there de-escalation of care discussed even if they declined (Discuss DNR or withdrawal of care, Hospice)? DNR status @ -No What co-morbidities impacted this encounter? (DM, HTN, Smoking, COPD, CAD, Cancer, CVA, ARF, Chemo, Hep., AIDS, mental health diagnosis, sleep apnea, morbid obesity)? @ -None Was patient admitted / discharged? Hospital course, mention meds given and route, prescriptions, significant lab abnormalities, going to OR and other pertinent info. @ -Based on patient's presentation and physical exam, we will obtain cardiopulmonary workup. This is her discharge in triage. Workup remarkable for normal d-dimer. Undetectable troponin. Remainder of the labs within acceptable limits. EKG and chest x-ray unremarkable. Vital signs within acceptable limits. I discussed results of the patient. She still having symptoms. We will attempt to treat that the chest pain with aspirin as well as nitroglycerin tablets which she was in agreement. Nitro tablets did not improve the patient's pain. She states she feels worse. She is complaining of a headache. We'll next try a GI cocktail as well as Toradol. She was in agreement this plan. I did offer admission at this time however she would like to see how she feels that I didn't obtain further blood work. Patient has some mild improvement in her symptoms. Patient's second troponin is also undetectable. I discussed results of the patient. I did offer observation admission which she accepted. Patient does have a heart score of 4, with a history of recurrent, significant family medical history, as well as her story. I discussed admission with Dr. Skinner of [facility] who accepted the patient. Cardiology consulted. Undiagnosed new problem with uncertain prognosis? @ -No Drug Therapy requiring intensive monitoring for toxicity (Heparin, Nitro, Insulin, Cardizem)? @ -No Were any procedures done? @ -No Diagnosis/symptom? @ -Atypical Chest pain Acute, or Chronic, or Acute on Chronic? @ -Acute Uncomplicated (without systemic symptoms) or Complicated (systemic symptoms)? @ -Complicated Side effects of treatment? @ -No Exacerbation, Progression, or Severe Exacerbation? @ -No Poses a threat to life or bodily function? How? (Chest pain, [place], [place], pneumonia, PE, COPD, DKA, ARF, appy, cholecystitis, CVA, Diverticulitis, Homicidal, Suicidal, threat to staff... and all critical care pts) @ -Possibly (Jeffy Chapman) Disposition <Rodriguez Montiel - Last Filed: 12/02/22 14:46> Time of Disposition: 22:15 <Jeffy Chapman - Last Filed: 12/02/22 22:30> Clinical Impression: Atypical chest pain Disposition: ADMITTED IP TO THIS HOSP Condition: Stable Referrals: Gomez Ellison, PAC [REFERRING] - 1-2 days
[2022-12-02 15:24] LABS: ALT 56 U/L (4-34); African American GFR (CKD) >90 (>60 ml/min/1.73 sqM); Albumin 5.4 g/dL (3.5-5.0); Blood Urea Nitrogen 11 mg/dL (7-17); Carbon Dioxide 21 mmol/L (22-30); Chloride 103 mmol/L (98-107); Glucose 106 mg/dL (74-99); Non-African American GFR(CKD) 89 (>60 ml/min/1.73 sqM); Total Protein 9.3 g/dL (6.3-8.2)
[2022-12-02 15:26] LABS: AST 53 U/L (14-36); Anion Gap 16 mmol/L; Calcium 10.1 mg/dL (8.4-10.2); INR 0.8 (<1.2); Partial Thromboplastin Time 23.8 sec (22.0-30.0); Prothrombin Time 9.6 sec (10.0-12.5); Sodium 140 mmol/L (137-145)
--- NOTE | 2022-12-02 15:28 | XR ---
EXAMINATION TYPE: XR chest 2V DATE OF EXAM: 12/02/2022 COMPARISON: 08/13/2021 TECHNIQUE: PA and lateral views submitted. HISTORY: Chest pain FINDINGS: The lungs are clear and there is no pneumothorax, pleural effusion, or focal pneumonia. Heart size normal and no overt failure. Osseous structures demonstrate hypertrophic and degenerative changes of the spine. IMPRESSION: 1. No acute process.
[2022-12-02 15:36] LABS: Basophils % (A) 0 %; Eosinophils # (A) 0.1 k/uL (0-0.7); Eosinophils % (A) 1 %; HCT 44.1 % (34.0-46.0); HGB 15.6 gm/dL (11.4-16.0); Lymphocytes # (A) 1.6 k/uL (1.0-4.8); Lymphocytes % (A) 22 %; MCHC 35.4 g/dL (31.0-37.0); MCV 90.5 fL (80.0-100.0); Mean Platelet Volume 8.7; Monocytes # (A) 0.4 k/uL (0-1.0); Monocytes % (A) 5 %; Neutrophils # (A) 5.2 k/uL (1.3-7.7); Neutrophils % (A) 70 %; Platelet Count 204 k/uL (150-450); RBC 4.88 m/uL (3.80-5.40); RDW 13.8 % (11.5-15.5); WBC 7.4 k/uL (3.8-10.6)
[2022-12-02 16:05] LABS: Alkaline Phosphatase 81 U/L (38-126)
[2022-12-02 16:15] LABS: Potassium 3.9 mmol/L (3.5-5.1)
[2022-12-02] MEDS ORDERED: SODIUM CHLORIDE 0.9% 1,000 ML IV STA (18:45)
[2022-12-02] MEDS ORDERED: NITROGLYCERIN SL TABS 0.4 MG TAB SUBLINGUAL PRN (18:45)
[2022-12-02] MEDS ORDERED: ASPIRIN 81 MG PO STA (18:45)
[2022-12-02] MEDS ORDERED: PANTOPRAZOLE 40 MG/10 ML VIAL IVP STA (19:35)
[2022-12-02] MEDS ORDERED: KETOROLAC 15 MG/ML 1 ML VIAL IVP STA (19:35)
[2022-12-02] MEDS ORDERED: MAG HYDROX/AL HYDROX/SIMETH 30 ML, HYOSCYAMINE ELIXIR 10 ML, LIDOCAINE 2% GLYDO JELLY 1... PO STA ×3 (19:35)
--- NOTE | 2022-12-02 22:14 | P.HPIM ---
History of Present Illness H&P Date: 12/02/22 Chief Complaint: Chest pain 42-year-old female with hypertension Patient coming in complaining of sudden onset chest pain started at midnight woke her up from sleep and continued to have chest pain throughout the day for which she decided come in for evaluation she described the pain as tingling sensation retrosternal sometimes heaviness sometimes sharp pain rated 6 out of 10 in severity radiates to the right shoulder and neck not associated with any nausea vomiting profuse sweating sometimes with some heavy breathing. Denies any palpitations. Denies any syncope. She reports recurrent episodes of similar pain in the past over the past one year usually resolves on its own however the son was persistent. Despite all the medications she got in the ED she continues to have this chest pain during interview with her however she was also eating and looked comfortable. She denies any prior history of heart disease denies any cardiac workup in the past. But reports strong family history of heart disease her brother who is a 1-year-old or has recently diagnosed with congestive heart failure. Her family from mom's side has very strong history of premature CAD Patient denies tobacco smoking or illicit drugs or heavy alcohol Patient otherwise denies any fevers chills coughing denies any headache denies any abdominal pain nausea vomiting changes in bowel or urinary habits denies any bleeding review of systems Pertinent positives as noted in HPI. All other systems were reviewed and are negative on exam Constitutional: No acute distress, conversant, pleasant Eyes: Anicteric sclerae, moist conjunctiva, Pupils equal round reactive to light ENMT: NC/AT Oropharynx clear, no erythema, or exudates Neck: Supple, no masses, or JVD No carotid bruits No thyromegaly Lungs: Clear to auscultation Clear to percussion Normal respiratory effort, no accessory muscle use Cardiovascular: Heart regular in rate and rhythm, No murmurs, gallops, or rubs No peripheral edema Abdominal: Soft Nontender, no guarding, rebound or rigidity Abdomen moving with respiration Normoactive bowel sounds No hepatomegaly, No splenomegaly No palpable mass No abdominal wall hernia noted Skin: Normal temperature, tone, texture, turgor No induration No subcutaneous nodules No rash, lesions No ulcers Extremities: No digital cyanosis No clubbing Pedal pulses intact and symmetrical Radial pulses intact and symmetrical No calf tenderness Psychiatric: Alert and oriented to person, place and time Appropriate affect fair judgement Neuro Muscles Strength 5/5 in all 4 extremities Sensation to light touch grossly present throughout Cranial nerves II-XII grossly intact Lymphatics: no palpable cervical or supraclavicular lymph nodes Assessment and plan 42-year-old female coming in for chest pain I discussed the case with the ED doctor I accepted the admission for atypical chest pain to rule out acute coronary syndrome with anticipated length of stay less than 2 midnights Atypical chest pain rule out acute coronary syndrome Troponins negative EKG no acute ST changes Cardiac telemetry showing recurrent episodes of runs of PVCs, very frequent Potassium 3.9 Sodium 140 creatinine 0.8 unremarkable Check magnesium Cardiology consult Check echocardiogram Check lipid profile Chest x-ray no acute pathology Uncontrolled hypertension, with elevated diastolic blood pressure Continue losartan and hydrochlorothiazide Full code DVT prophylaxis heparin subcu 3 times a day Past Medical History Past Medical History: Asthma, Hypertension Additional Past Medical History / Comment(s): wore heart monitor in spring for possible murmur, no issues found, migraines History of Any Multi-Drug Resistant Organisms: None Reported Past Surgical History: Section, Ear Surgery, Tubal Ligation, Uterine Ablation Additional Past Surgical History / Comment(s): Section X3., D & C Past Anesthesia/Blood Transfusion Reactions: No Reported Reaction Additional Past Anesthesia/Blood Transfusion Reaction / Comment(s): "[place] last entirely". Mom and brother slow to wake up. Past Psychological History: No Psychological Hx Reported Smoking Status: Former smoker Past Alcohol Use History: None Reported Past Drug Use History: None Reported - Past Family History Brother(s) Family Medical History: Cancer Additional Family Medical History / Comment(s): Tongue cancer, throat cancer, non hodgkins lymphoma. Medications and Allergies Home Medications Medication Instructions Recorded Confirmed Type Phentermine HCl [Adipex-P] 37.5 mg PO DAILY 09/14/19 08/13/21 History Topiramate [Topamax] 25 mg PO BID 09/14/19 08/13/21 History hydroCHLOROthiazide 12.5 mg PO DAILY 09/14/19 08/13/21 History Losartan Potassium [Cozaar] 100 mg PO DAILY 08/13/21 08/13/21 History Allergies Allergy/AdvReac Type Severity Reaction Status Date / Time No Known Allergies Allergy Verified 12/02/22 14:10 Physical Exam Vitals: Vital Signs Temp Pulse Resp BP Pulse Ox 12/02/22 21:00 64 16 119/90 99 12/02/22 20:55 99 12/02/22 14:10 97.9 F 95 18 160/86 99 Intake and Output 12/02/22 12/02/22 12/02/22 06:59 14:59 22:59 Other: Weight 81.647 kg Results CBC & Chem 7: 12/02/22 14:56 12/02/22 14:56 Labs: Abnormal Lab Results - Last 24 Hours (Table) 12/02/22 12/02/22 Range/Units 14:56 14:56 PT 9.6 L (10.0-12.5) sec Carbon Dioxide 21 L (22-30) mmol/L Glucose 106 H (74-99) mg/dL AST 53 H (14-36) U/L ALT 56 H (4-34) U/L Total Protein 9.3 H (6.3-8.2) g/dL Albumin 5.4 H (3.5-5.0) g/dL
[2022-12-02] MEDS ORDERED: NALOXONE 0.4 MG/ML 1 ML VIAL IV PRN (22:21)
[2022-12-03 05:50] LABS: Basophils % (A) 0 %; Eosinophils # (A) 0.2 k/uL (0-0.7); Eosinophils % (A) 4 %; HGB 13.7 gm/dL (11.4-16.0); Lymphocytes # (A) 2.1 k/uL (1.0-4.8); Lymphocytes % (A) 34 %; MCH 31.9 pg (25.0-35.0); MCHC 34.2 g/dL (31.0-37.0); MCV 93.2 fL (80.0-100.0); Mean Platelet Volume 8.7; Monocytes # (A) 0.4 k/uL (0-1.0); Monocytes % (A) 6 %; Neutrophils # (A) 3.3 k/uL (1.3-7.7); Neutrophils % (A) 53 %; Platelet Count 187 k/uL (150-450); RBC 4.29 m/uL (3.80-5.40); WBC 6.1 k/uL (3.8-10.6)
[2022-12-03 06:04] LABS: African American GFR (CKD) 84 (>60 ml/min/1.73 sqM); Anion Gap 11 mmol/L; Blood Urea Nitrogen 14 mg/dL (7-17); Carbon Dioxide 20 mmol/L (22-30); Chloride 109 mmol/L (98-107); Glucose 118 mg/dL (74-99); Non-African American GFR(CKD) 73 (>60 ml/min/1.73 sqM); Potassium 3.4 mmol/L (3.5-5.1); Sodium 140 mmol/L (137-145)
[2022-12-03] MEDS: HEPARIN SODIUM,PORCINE 5,000 UNIT/ML 1 ML VIAL SQ SCH ×2 (06:26→12:11)
[2022-12-03] MEDS ORDERED: POTASSIUM CHLORIDE ER 20 MEQ TAB.ER PO STA (08:39)
[2022-12-03] MEDS ORDERED: hydroCHLOROthiazide 12.5 MG CAP PO SCH (09:00)
[2022-12-03] MEDS ORDERED: LOSARTAN 50 MG TAB PO SCH (09:00)
[2022-12-03] MEDS ORDERED: ASPIRIN 81 MG PO SCH (09:00)
--- NOTE | 2022-12-03 09:17 | P.CRDCN ---
History of Present Illness Consult date: 12/03/22 Consult reason: chest pain History of present illness: History of present illness: This is a 42 year old female patient of Dr. Whitmore with past medical history of atypical chest pain, hypertension, overweight, family history of premature coronary artery disease. We have been asked to evaluate the patient for chest pain. Patient states she had onset of right-sided chest pain that went into her right shoulder neck and arm. It started the midnight before last and woke her up from sleep. She states the pain is still there and it feels irritating. She denies any recent lifting injury. EKG sinus rhythm with no acute ST changes Chest x-ray: No acute process CBC normal. Sodium 140, potassium 3.4, chloride 109, CO2 20, BUN 14 creatinine 0.97. Blood sugar 118. Troponins negative 4. AST 53, ALT 56. Home cardiac medications: Hydrochlorothiazide 12.5 mg daily, losartan 100 mg daily Lexiscan stress test 10/24/2021 was nondiagnostic, normal perfusion, no evidence of stress-induced ischemia, normal left ventricular systolic function. Echocardiogram performed in the office on 09/06/2021 revealed normal LV size and function with EF of 55%. There is a small hypokinetic area of the inferior wall at the base. Mild mitral regurgitation. Trace tricuspid regurgitation. Normal pulmonary artery systolic pressure. Review Of Systems: At the time of my evaluation: Constitutional: No fever, no chills. No weakness, fatigue or lethargy. EENT: No headache. No dizziness. Lungs: No shortness of breath, cough, no sputum production. No wheezing. Cardiovascular: Right-sided chest pain, no lower extremity edema. No palpitations. No paroxysmal nocturnal dyspnea. No orthopnea. No lightheadedness or dizziness. No syncopal episodes. Abdominal: No abdominal pain. No nausea, vomiting. No diarrhea. Musculoskeletal: No myalgias. No muscle weakness, no frequent falls. Integumentary: No wounds. No rash. No unusual bruising. Neurologic: No aphasia. No facial droop. No change in mentation. Physical examination: Gen: This is a 42 year old female resting in bed and appears to be in no acute distress. VS: reviewed HEENT: Head is atraumatic, normocephalic. Pupils equal, round. Sclerae is anicteric. NECK: Supple. No JVD. . LUNGS: Clear to auscultation. No wheezes or rhonchi. No intercostal retractions. HEART: Regular rate and rhythm. No murmur. ABDOMEN: Soft No tenderness. EXTREMITIES: No pedal edema. No calf tenderness. NEUROLOGICAL: Patient is awake, alert and oriented x3. Assessment: Atypical chest pain, acute coronary syndrome ruled out Hypertension Overweight Family history of premature coronary artery disease Plan: Obtain stress echocardiogram No need for 2-D echocardiogram If stress echo is within normal limits, patient is cleared for discharge and may follow up with Dr. Whitmore in the office in 2 weeks. Thank you kindly for this consultation. Nurse practitioner note has been reviewed, I agree with documented findings and plan of care. Patient was seen and examined. Past Medical History Past Medical History: Asthma, Hypertension Additional Past Medical History / Comment(s): wore heart monitor in spring for possible murmur, no issues found, migraines History of Any Multi-Drug Resistant Organisms: None Reported Past Surgical History: Section, Ear Surgery, Tubal Ligation, Uterine Ablation Additional Past Surgical History / Comment(s): Section X3., D & C Past Anesthesia/Blood Transfusion Reactions: No Reported Reaction Additional Past Anesthesia/Blood Transfusion Reaction / Comment(s): "[place] last entirely". Mom and brother slow to wake up. Past Psychological History: No Psychological Hx Reported Smoking Status: Former smoker Past Alcohol Use History: None Reported Past Drug Use History: None Reported - Past Family History Brother(s) Family Medical History: Cancer Additional Family Medical History / Comment(s): Tongue cancer, throat cancer, non hodgkins lymphoma. Medications and Allergies Home Medications Medication Instructions Recorded Confirmed Type Topiramate [Topamax] 25 mg PO BID 09/14/19 12/03/22 History hydroCHLOROthiazide 12.5 mg PO DAILY 09/14/19 12/03/22 History Losartan Potassium [Cozaar] 100 mg PO DAILY 08/13/21 12/03/22 History Cholecalciferol [Vitamin D3 (125 125 mcg PO DAILY 12/03/22 12/03/22 History Mcg = 5000 Iu)] Magnesium Oxide [Magnesium] 500 mg PO DAILY 12/03/22 12/03/22 History Multivit-Min/Iron Fum/Folic AC 1 tab PO DAILY 12/03/22 12/03/22 History [One-A-Day Women's Complete Tab] Allergies Allergy/AdvReac Type Severity Reaction Status Date / Time No Known Allergies Allergy Verified 12/03/22 07:01 Physical Exam Vitals: Vital Signs Temp Pulse Resp BP Pulse Ox 12/03/22 08:01 86 16 135/68 98 12/03/22 07:52 98 F 59 L 20 116/73 98 12/02/22 21:00 64 16 119/90 99 12/02/22 20:55 99 12/02/22 14:10 97.9 F 95 18 160/86 99 Results 12/03/22 03:25 12/03/22 04:30 Cardiac Enzymes 12/02/22 12/02/22 12/02/22 Range/Units 14:56 14:56 19:41 AST 53 H (14-36) U/L Troponin I <0.012 <0.012 (0.000-0.034) ng/mL 12/02/22 12/03/22 Range/Units 22:40 04:30 AST (14-36) U/L Troponin I <0.012 <0.012 (0.000-0.034) ng/mL Coagulation 12/02/22 Range/Units 14:56 PT 9.6 L (10.0-12.5) sec APTT 23.8 (22.0-30.0) sec CBC 12/02/22 12/03/22 Range/Units 14:56 03:25 WBC 7.4 6.1 (3.8-10.6) k/uL RBC 4.88 4.29 (3.80-5.40) m/uL Hgb 15.6 13.7 (11.4-16.0) gm/dL Hct 44.1 40.0 (34.0-46.0) % Plt Count 204 187 (150-450) k/uL Comprehensive Metabolic Panel 12/02/22 12/03/22 Range/Units 14:56 04:30 Sodium 140 140 (137-145) mmol/L Potassium 3.9 3.4 L (3.5-5.1) mmol/L Chloride 103 109 H (98-107) mmol/L Carbon Dioxide 21 L 20 L (22-30) mmol/L BUN 11 14 (7-17) mg/dL Creatinine 0.82 0.97 (0.52-1.04) mg/dL Glucose 106 H 118 H (74-99) mg/dL Calcium 10.1 9.0 (8.4-10.2) mg/dL AST 53 H (14-36) U/L ALT 56 H (4-34) U/L Alkaline Phosphatase 81 (38-126) U/L Total Protein 9.3 H (6.3-8.2) g/dL Albumin 5.4 H (3.5-5.0) g/dL Current Medications Generic Name Dose Route Start Last Admin Trade Name Freq PRN Reason Stop Dose Admin Aspirin 81 mg 12/03/22 09:00 Aspirin [address] [facility] Heparin Sodium (Porcine) 5,000 unit 12/03/22 00:00 12/03/22 06:26 Heparin Sodium,Porcine 5,000 Unit/Ml 1 Ml Vial SQ 5,000 unit Q8HR WILLIE Administration Hydrochlorothiazide 12.5 mg 12/03/22 09:00 Hydrochlorothiazide 12.5 [address] [facility] Losartan Potassium 100 mg 12/03/22 09:00 Losartan 50 Mg Tab PO DAILY [facility] Naloxone HCl 0.2 mg 12/02/22 22:21 Naloxone 0.4 Mg/Ml 1 Ml Vial IV Q2M PRN Opioid Reversal 12/03/22 03:25 12/03/22 04:30
[2022-12-03 12:00] VITALS: TEMP 98
--- NOTE | 2022-12-03 13:35 | CA ---
Stress Echo Report Amy Ramos Age: 42 Gender: F : 1980 Exam Date: 12/03/2022 10:05 Exam Location: [place] [facility] Ht (in): 65 Wt (lb): 186 Ordering Physician: Ivanna Farrell Referring Physician: [id number] [employer]inct Captain: ELSA, Technologist Procedure CPT: Indication: CP ICD-9 Codes: Rhythm: Patient History: Chest pain and LBBB Cardiac Medications: Medications in past 24 hours: Contrast: Lumason Stress Results Protocol: Kirby Total dose(mL): 5 Exercise Duration (min:sec): Max ST Depression (mm): Angina Score: Merritt Score: METS: 8.3 Resting HR: 67 Resting BP: 129 / 83 Peak HR: 175 Peak BP: 251 / 93 Max Predicted HR: 179 98 % Max Predicted HR Target HR: 152 Double Product: 45582 Stress Summary: BP Response: Reason for Termination: Reached target heart rate or work-load Cardiac Symptoms: Chest pain ECG Analysis Resting ECG: Stress ECG: Arrhythmia: Echo Analysis Resting Echo: Peak Echo Analysis: MEASUREMENTS (Male/Female) Normal Values CONCLUSIONS No ECG or echocardiographic evidence for ischemia Rate related left bundle branch block aberrancy No arrhythmias Dr. Jose Alvarenga MD (Electronically Signed) Final Date: 03 December 2022 13:34
[2022-12-03 14:54] VITALS: BP 128/81; PULSE 87; RESP 18
--- NOTE | 2022-12-03 15:09 | P.DS ---
Providers Date of admission: 12/02/22 22:21 Expected date of discharge: 12/03/22 Attending physician: Hiwot Skinner MD Consults: 12/02/22 22:21 Consult Physician Routine Consulting Provider: [facility] Consult Reason/Comments: chest pain Do you want consulting provider notified?: Yes Primary care physician: Ash Galindo Hospital Course: Discharge Diagnosis: Chest pain, acute coronary event ruled out Hypertension Left bundle branch block Elevated liver enzymes Hospital Course: Patient is a pleasant 42-year-old female with a past medical history of hypertension and previously known left bundle branch block follows outpatient with Dr. Gutiérrez for management of her hypertension. She presented to the emergency department with a chief complaint of chest pain. Patient reported pain to midsternal chest described as a persistent pain/pressure with radiation to right shoulder. She underwent full evaluation in the emergency department. Labs completed and reviewed. CBC unremarkable. Coagulation profile showing low PT of 9.6 otherwise normal findings. D-dimer normal finding at 0.34. BMP showing mild hypocarbia with bicarb of 21 and anion gap elevated at 16. Magnesium normal findings at 2.4. Liver profile showing elevated AST of 53 and ALT of 56 (has history of elevated liver enzymes dating back to 2019). Troponin was negative at less than 0.012. EKG completed revealing normal sinus rhythm at 68 bpm with T-wave inversion in lateral lead aVL showing no other ST or T-wave abnormalities at this time upon personal review and interpretation. Chest x-ray is negative for acute cardiopulmonary process. Patient was admitted under our services to cardiac observation unit with consultation to cardiology. Patient had full resolution of previous reported chest pain/discomfort and denies having any other complaints since hospitalization. Troponins trended overnight all negative at less than 0.0124 draws. Patient was evaluated by christian education director recommending stress echo. Stress echo completed and report reviewed stating no ECG or electrocardiographic evidence of ischemia showing a rate related left bundle branch block with aberrancy and no arrhythmias. Patient was cleared by christian education director for outpatient follow-up with Dr. Gutiérrez. Medically, patient free for many complaints at this time and is stable for discharge home. Patient to follow-up with PCP in 1-2 days and with christian education director in 1 week. No medication changes made this admission. Physical exam: Patient seen and examined at bedside. Vital signs reviewed and stable. General: Nontoxic, no distress and appears stated age. Derm: Skin warm and dry, normal coloration for ethnicity. Head: Atraumatic, normocephalic and symmetric. Eyes: EOMs intact, no lid lag, and anicteric sclera Mouth: no lip lesions, mucus membranes moist Cardiovascular: regular rate and rhythm with normal S1S2, no murmur, positive posterior tibial pulses bilaterally, and cap refill < 2 seconds. Lungs: Respirations even, regular, and unlabored on room air. Lungs CTA bilaterally, no rhonchi, no rales, no wheezing, and no accessory muscle usage. Abdominal: soft, nontender to palpation, no guarding, no appreciable organomegaly Ext: ROM intact. No gross muscle atrophy, no edema, no contractures Neuro: Speech clear, face symmetrical and CN II-XII grossly intact with no noted focal neuro deficits Psych: Alert and oriented to person, place, time, and situation. Appropriate and pleasant affect. A total of 34 minutes of time were spent preparing this complex discharge summary. Pt was discharged on 12/03/2022 at 2:49 PM. Patient was seen independently by Nurse Practitioner. This document was prepared using [employer] dictation software. Please allow for errors in news camera person while rare they do occur. I reviewed the documentation as provided by the YADIRA above, who is the original author of this note. I agree with the documented assessment and plan, with the following changes: none Patient Condition at Discharge: Stable Plan - Discharge Summary New Discharge Prescriptions: Continue Topiramate [Topamax] 25 mg PO BID hydroCHLOROthiazide 12.5 mg PO DAILY Losartan Potassium [Cozaar] 100 mg PO DAILY Multivit-Min/Iron Fum/Folic AC [One-A-Day Women's Complete Tab] 1 tab PO DAILY Magnesium Oxide [Magnesium] 500 mg PO DAILY Cholecalciferol [Vitamin D3 (125 Mcg = 5000 Iu)] 125 mcg PO DAILY Discharge Medication List Topiramate [Topamax] 25 mg PO BID 09/14/19 [History] hydroCHLOROthiazide 12.5 mg PO DAILY 09/14/19 [History] Losartan Potassium [Cozaar] 100 mg PO DAILY 08/13/21 [History] Cholecalciferol [Vitamin D3 (125 Mcg = 5000 Iu)] 125 mcg PO DAILY 12/03/22 [History] Magnesium Oxide [Magnesium] 500 mg PO DAILY 12/03/22 [History] Multivit-Min/Iron Fum/Folic AC [One-A-Day Women's Complete Tab] 1 tab PO DAILY 12/03/22 [History] Follow up Appointment(s)/Referral(s): Madison Keith MD [STAFF PHYSICIAN] - 12/16/22 4:30 pm (Appointment on 01/11 has been cancelled ) Gomez Ellison PAC [REFERRING] - 1-2 days Patient Instructions/Handouts: Chest Pain (DC), Stress Echocardiogram (DC) Activity/Diet/Wound Care/Special Instructions: Activity: As tolerated. Take breaks as needed. Diet: Heart healthy and carb consistent diet. Avoid salts, or foods with hidden salts such as canned or boxed foods and frozen dinners. Extra salt makes your heart work harder and traps the fluid in your body for longer. Special Instructions: Take all of your medications as directed and remember to keep all of your doctor's appointments and follow-up as needed. Thank you for allowing us to participate in your care, it was truly a pleasure having you for our patient!!! Discharge Disposition: HOME SELF-CARE
== END 2022-12-03 16:10 | disposition home or self-care (01) ==
LOC: EC 14:00 → 6NMEDSUR 22:21
PROVIDERS: ADMIT Internal Medicine; ATTEND Internal Medicine
DX: R07.89 Other chest pain (principal); I10 Essential (primary) hypertension; I44.7 Left bundle-branch block, unspecified; R74.8 Abnormal levels of other serum enzymes; J45.909 Unspecified asthma, uncomplicated; E66.3 Overweight; Z68.30 Body mass index [BMI] 30.0-30.9, adult; Z87.891 Personal history of nicotine dependence; Z79.899 Other long term (current) drug therapy; Z82.49 Family history of ischemic heart disease and other diseases of the circulatory system
CPT/HCPCS: 96372 ×2; 96374; 96375; 99285; 36415; 93005; 93351; 85379; 80053; 80048; 83735; 84484 ×2; 85025 ×2; 85610; 85730; 71046; G0378 ×2; J1644; J1885; C9113; Q9950

== ENCOUNTER → 2023-02-12 | Outpatient (CLI) | payer BC, OTHER ==
[2023-02-12 15:16] LABS: HGB 14.3 g/dL (12.0-15.0); MCH 30.4 pg (27.0-32.0); MCHC 33.3 g/dL (32.0-37.0); MCV 91.3 FL (80.0-97.0); Mean Platelet Volume 11.6 FL (9.5-12.2); NRBC Per 100 WBC 0 X 10*3/uL (0.00-0.01); Platelet Count 191 X 10*3/uL (140-440); RBC 4.71 X 10*6/uL (4.10-5.20); RDW 13.7 % (11.5-14.5); WBC 6.45 X 10*3/uL (4.50-10.00)
[2023-02-12 15:37] LABS: Blood Urea Nitrogen 12.4 mg/dL (9.0-27.0); Calcium 9.5 mg/dL (8.7-10.3); Carbon Dioxide 24.9 mmol/L (21.6-31.8); Chloride 104 mmol/L (96-109); Glucose 99 mg/dL (70-110); Potassium 4.4 mmol/L (3.5-5.5); Sodium 141 mmol/L (135-145); T4, Free (Free Thyroxine) 1.03 ng/dL (0.80-1.80)
== END | disposition home or self-care (01) ==
LOC: LABWHC1 09:23
PROVIDERS: ATTEND Internal Medicine Interventional Cardiology
DX: I49.9 Cardiac arrhythmia, unspecified (principal)
CPT/HCPCS: 36415; 80048; 84439; 84443; 85027

== ENCOUNTER → 2023-05-05 | Outpatient (CLI) | payer BC, OTHER ==
--- NOTE | 2023-05-06 07:40 | MM ---
Reason for Exam: Screening (asymptomatic). Last mammogram was performed 3 year(s) and 7 month(s) ago. Patient History: Menarche at age 14. First Full-Term at age 21. Hormonal Contraceptives for 10 years from age 16 until age 26. Paternal grandmother had breast cancer, age 40. Maternal grandmother had breast cancer, age 40. Paternal aunt had breast cancer, age 30. Maternal aunt had breast cancer, age 54. Maternal aunt had breast cancer, age 40. Maternal aunt had breast cancer, age 50. Risk Values: Trinity 5 year model risk: 0.5%. NCI Lifetime model risk: 9.0%. Prior Study Comparison: 09/28/2019 Bilateral Screening Mammogram, [facility]. Tissue Density: The breasts are heterogeneously dense, which may obscure small masses. Findings: Analyzed By CAD. There is no suspicious group of microcalcifications or new suspicious mass. Overall Assessment: Negative, BI-RAD 1 Management: Screening Mammogram of both breasts in [address] [facility] will attempt to contact patient to return for supplemental views and ultrasound if indicated. Patient should continue monthly self-breast exams. A clinical breast exam by your physician is recommended on an annual basis. This exam should not preclude additional follow-up of suspicious palpable abnormalities. Note on Trinity scores and lifetime risk: 1. A Trinity score greater than 3% is considered moderate risk. If this is the case, consider specialist referral to assess eligibility for a risk reducing agent. 2. If overall lifetime risk for the development of breast cancer is 20% or higher, the patient may qualify for future screening with alternating mammogram and breast MRI. Electronically signed and approved by: Abel Barahona DO
== END | disposition home or self-care (01) ==
LOC: RADMAMWWP 12:30
PROVIDERS: ATTEND Family Medicine
DX: Z12.31 Encounter for screening mammogram for malignant neoplasm of breast (principal); Z80.3 Family history of malignant neoplasm of breast
CPT/HCPCS: 77063; 77067